=== PATIENT | female | born 1965 | race Caucasian/White ===

== ENCOUNTER → 2016-09-03 | Outpatient (CLI) | payer OTHER ==
[~2016-09-03] MED LIST: ALL180 PO; CLON0.5T3 PO; ESCI10TA17 PO; PANT40TA PO
[2016-09-03 15:42] LABS: BASO % 1.3 %; BASO ABS # 0.08 K/uL (0-0.2); COMPLETE YES; EOS % 1.3 %; HEMATOCRIT 38.3 % (37-47); LYMPH % 23.4 %; MEAN CELL VOLUME 83.8 fL (80-100); MEAN CORPUSCULAR HEMOGLOBIN 27.8 pg (25-34); MEAN CORPUSCULAR HGB CONC 33.2 g/dl (32-36); MEAN PLATELET VOLUME 9.6 fL (7.4-10.4); MONO % 8.9 %; NEUT % 65.1 %; PLATELET COUNT 389 K/uL (130-400); RED BLOOD COUNT 4.57 M/uL (4.2-5.4); WHITE BLOOD COUNT 5.98 K/uL (4.8-10.8)
[2016-09-03 16:27] LABS: PREG INTERNAL NEGATIVE QC NEG CLEAR BACKGROUND; PREG INTERNAL POSITIVE QC POS CONTROL LINE
== END | disposition home or self-care (01) ==
LOC: C.LAB 14:24
PROVIDERS: ATTEND Obstetrics & Gynecology
DX: N92.0 Excessive and frequent menstruation with regular cycle (principal)

== ENCOUNTER → 2016-09-03 | Outpatient (CLI) | payer OTHER | END | disposition home or self-care (01) | LOC: C.PATHSPEC 17:34 | PROVIDERS: ATTEND Obstetrics & Gynecology | DX: N92.0 Excessive and frequent menstruation with regular cycle (principal) ==

== ENCOUNTER → 2016-09-21 | Outpatient (CLI) | payer OTHER ==
--- NOTE | 2016-09-21 08:36 | DIAGNOSTIC IMAGING REPORT ---
PELVIC ULTRASOUND CLINICAL HISTORY: Menorrhagia. COMPARISON STUDY: Pelvic ultrasound January 07, 2012. TECHNIQUE: Transabdominal and transvaginal sonography of the pelvis was performed. FINDINGS: The uterus measures 9.3 x 5.4 x 4.7 cm. The endometrium measures 9 mm in thickness. Note is made of an apparent 1.3 x 1.1 x 1.1 cm hypoechoic lesion adjacent to the endometrium within the left aspect of the uterine fundus. This may reflect a submucosal fibroid. A few nabothian cysts are incidentally noted. The right ovary measures 3.1 x 2.4 x 1.9 cm and the left ovary measures 2.4 x 1.9 x 1.3 cm. Follicles within each ovary are noted. There is no free fluid. Color flow is identified within each ovary. IMPRESSION: 1. Apparent 1.3 cm hypoechoic lesion adjacent to the endometrium within the left aspect of the uterine fundus. While this could be artifactual, the appearance favors a submucosal fibroid. 2. Normal endometrial thickness of 9 mm. Electronically signed by: Elias Kat M.D. 09/21/2016 8:35 AM Dictated Date/Time: 09/21/2016 8:29 AM
== END | disposition home or self-care (01) ==
LOC: C.ULTR 06:51
PROVIDERS: ATTEND Obstetrics & Gynecology
DX: N92.0 Excessive and frequent menstruation with regular cycle (principal)

== ENCOUNTER → 2016-09-30 | Outpatient (CLI) | payer OTHER | END | disposition home or self-care (01) | LOC: C.LAB 07:27 | PROVIDERS: ATTEND Obstetrics & Gynecology | DX: N92.0 Excessive and frequent menstruation with regular cycle (principal) ==

== ENCOUNTER → 2016-12-03 | Outpatient (CLI) | payer OTHER ==
--- NOTE | 2016-12-04 13:21 | MAMMOGRAPHY REPORT ---
BILATERAL DIGITAL SCREENING MAMMOGRAM TOMOSYNTHESIS WITH CAD: 12/03/2016 CLINICAL HISTORY: Routine screening. Patient has no complaints. TECHNIQUE: Breast tomosynthesis in addition to standard 2D mammography was performed. Current study was also evaluated with a Computer Aided Detection (CAD) system. COMPARISON: Comparison is made to exams dated: 05/16/2015 mammogram, 04/04/2014 mammogram, 12/01/2012 ma mmogram, 11/23/2011 mammogram, 11/20/2010 mammogram - [facility], and 08/03/2008. BREAST COMPOSITION: There are scattered areas of fibroglandular density in both breasts. FINDINGS: No suspicious masses, calcifications, or areas of architectural distortion are noted in ei ther breast. There has been no significant interval change compared to prior exams. A linear scar ma rker denotes a scar on the right upper outer breast. IMPRESSION: ACR BI-RADS CATEGORY 2: BENIGN There is no mammographic evidence of malignancy. A 1 year screening mammogram is recommended. The pa tient will receive written notification of the results. Approximately 10% of breast cancers are not detected with mammography. A negative mammographic report should not delay biopsy if a clinically suggestive mass is present. Mirian Salguero M.D. /:12/03/2016 15:24:51 Analytics Intern: Sharri Sanchez M, [facility] letter sent: Normal 1/2 BI-RADS Code: ACR BI-RADS Category 2: Benign
== END | disposition home or self-care (01) ==
LOC: C.MAMM 14:51
PROVIDERS: ATTEND Obstetrics & Gynecology
DX: Z12.31 Encounter for screening mammogram for malignant neoplasm of breast (principal)

== ENCOUNTER → 2017-05-19 | Outpatient (CLI) | payer OTHER ==
[2017-05-19 06:57] LABS: HEMATOCRIT 39.3 % (37-47); HEMOGLOBIN 13.2 g/dL (12.0-16.0); MEAN CELL VOLUME 84.7 fL (80-100); MEAN CORPUSCULAR HEMOGLOBIN 28.4 pg (25-34); MEAN CORPUSCULAR HGB CONC 33.6 g/dl (32-36); MEAN PLATELET VOLUME 9.3 fL (7.4-10.4); PLATELET COUNT 376 K/uL (130-400); RED CELL DISTRIBUTION WIDTH SD 43.1 fL (36.4-46.3); WHITE BLOOD COUNT 5.84 K/uL (4.8-10.8)
[2017-05-19 07:31] LABS: ALBUMIN 3.4 gm/dl (3.4-5.0); ALT/SGPT 22 U/L (12-78); BLOOD UREA NITROGEN 12 mg/dl (7-18); CALCIUM 8.8 mg/dl (8.5-10.1); CARBON DIOXIDE 25 mmol/L (21-32); CHOLESTEROL 196 mg/dl (0-200); CREATININE 0.68 mg/dl (0.60-1.20); GLUCOSE 90 mg/dl (70-99); POTASSIUM 4.2 mmol/L (3.5-5.1); SODIUM 140 mmol/L (136-145)
[2017-05-19 07:34] LABS: ALKALINE PHOSPHATASE 57 U/L (45-117); AST/SGOT 13 U/L (15-37); LDL CHOLESTEROL CALCULATED 127 mg/dl; TOTAL PROTEIN 6.6 gm/dl (6.4-8.2)
== END | disposition home or self-care (01) ==
LOC: C.LAB 06:02
PROVIDERS: ATTEND Physician Assistant
DX: Z83.79 Family history of other diseases of the digestive system (principal); Z80.1 Family history of malignant neoplasm of trachea, bronchus and lung; Z13.6 Encounter for screening for cardiovascular disorders

== ENCOUNTER 2020-07-10 05:49 | Observation (INO) ==
--- NOTE | 2020-07-08 09:08 | Anesthesiology Consultation ---
Date of Service July 08, 2020 Assessment & Plan (1) Encounter for pre-operative examination: Chart Review Chart Review: Acceptable Risk for Surgery and Patient NOT seen in Pre Admission Testing Per nursing assessment 06/27/20, patient denies any recent travel. No known Covid positive contacts or Covid related symptoms. No known Covid infection in the past 90 days. Covid test 07/05/20= negative History Surgery Operation Date: 07/10/20 07:30 Proposed Procedures p Bilateral Reduction Mammoplasty - Janee Oreilly MD Height/Weight Height: 5 ft 3 in Weight: 63.503 kg Allergies Allergy/AdvReac Type Severity Reaction Status Date / Time bee venom protein (honey bee) Allergy Intermediate Hives AND Verified 06/27/20 08:28 CHEST TIGHTNESS latex Allergy Mild SKIN Verified 06/27/20 08:28 IRRITATION Medications Home Medications Medication Instructions Recorded Confirmed Last Taken epinephrine [EpiPen] 0.3 mg IM Q3H PRN 02/23/18 06/27/20 Unknown escitalopram oxalate [Lexapro] 10 mg PO QAM 02/23/18 06/27/20 03/03/18 acetaminophen 325 mg tablet 500 mg PO DAILY PRN tab 01/31/19 06/27/20 Unknown pseudoephedrine HCl 30 mg tablet 30 mg PO DAILY PRN tab 01/31/19 06/27/20 Unknown cholecalciferol (vitamin D3) 125 5,000 units PO QAM 03/22/19 06/27/20 Unknown mcg (5,000 unit) capsule hydrocodone 5 mg-acetaminophen 325 1 tab PO Q4H PRN #18 tab 06/24/20 06/27/20 Unknown mg tablet ondansetron HCl 4 mg tablet 4 mg PO Q6H PRN #30 tab 06/24/20 06/27/20 Unknown apple cider vinegar 900 mg PO QAM 06/27/20 06/27/20 Unknown krill oil 500 mg PO QAM 06/27/20 06/27/20 Unknown lactobacillus combination no.4 3,000 mmu cells PO QAM 06/27/20 06/27/20 Unknown [Probiotic] multivitamin 1 tab PO QAM 06/27/20 06/27/20 Unknown Past Medical History Medical History Depression Esophageal stricture HX WITH DILATION GERD (gastroesophageal reflux disease) History of eating disorder Pancolitis HX Restless leg syndrome Rotator cuff injury LEFT ARM- TORN Slow to wake up after anesthesia WAS GIVEN "CHILD SIZE DOSE OF ANESTHESIA" AND STILL HAD DIFFICULTY WAKING AFTER CHOLECYSTECTOMY Terminal ileitis HX Past Family History Family History Father Lung cancer Grandfather (Maternal) Diabetes Other Crohn's disease Past Surgical History Surgical History 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 H/O tubal ligation History of appendectomy History of breast biopsy LEFT- lipoma History of cataract surgery RT/LEFT History of cholecystectomy History of colonoscopy History of esophagogastroduodenoscopy (EGD) History of tooth extraction S/P section X1 S/P ear surgery EXPLORATORY SURGERY ON LEFT EAR Social History Smoking Status: Never smoker Do You Dip or Chew Tobacco: No Hx Alcohol Use: No Hx Substance Use: No substance use type: does not use Testing Laboratory Results Laboratory Tests 07/05/20 07/05/20 07/05/20 10:31 10:31 10:31 WBC 6.02 Hgb 13.1 Hct 37.7 Plt Count 374 PT 10.0 INR 1.0 APTT 26.3 Sodium 141 Potassium 4.3 Chloride 110 H Carbon Dioxide 28 BUN 15 Creatinine 0.78 Glucose 64 L Electrocardiogram Date: 07/05/20 Findings: + NSR @ (72bpm) Normal EKG.
[2020-07-10] MEDS ORDERED: ceFAZolin 2000MG 2,000 MG/15 ML SYR IV SCH (06:00)
[2020-07-10] MEDS ORDERED: LACTATED RINGER'S 1,000 ML IV SCH (06:00)
[2020-07-10] MEDS ORDERED: BUPIVACAINE LIPOSOME 1.3% 266 MG/20 ML VIAL ONE (06:10)
[2020-07-10] MEDS ORDERED: BUPIVACAINE 0.5 % 5 MG/1 ML PF 10ML VIAL ONE (06:19)
--- NOTE | 2020-07-10 07:02 | History & Physical Bridge Note ---
Date of Service July 10, 2020 History & Physical Bridge Note I have examined the patient, reviewed the History & Physical and in the interval since the performance of the History & Physical I have noted the following changes of clinical significance: no changes noted B cup if possible
[2020-07-10] MEDS ORDERED: PROPOFOL IV EMULSION 10 MG/ML 20 ML VIAL IV ONE (07:04)
[2020-07-10] MEDS ORDERED: ePHEDrine sulfate 50 MG/ML AMP ONE (07:04)
[2020-07-10] MEDS ORDERED: DEXAMETHASONE SOD INJ 4 MG/ML VIAL ONE ×2 (07:04→07:49)
[2020-07-10] MEDS ORDERED: ONDANSETRON INJ 2 MG/ML 2 ML VIAL ONE ×2 (07:04→07:49)
[2020-07-10] MEDS ORDERED: fentaNYL citrate 100 MCG/2 ML VIAL ONE (07:04)
[2020-07-10] MEDS ORDERED: LIDOCAINE HCL 2% 2 ML VIAL/AMP(20MG/ML) INFIL ONE (07:04)
[2020-07-10] MEDS ORDERED: MIDAZOLAM HCL 1 MG/ML 2ML VIAL ONE ×2 (07:04→07:06)
[2020-07-10] MEDS ORDERED: NEOSTIGMINE METHYLSULFATE 5 MG/5 ML SYR ONE (07:04)
[2020-07-10] MEDS ORDERED: PHENYLEPHRINE HCL 10 MG/ML VIAL ONE (07:04)
[2020-07-10] MEDS ORDERED: SUCCINYLCHOLINE CHLORIDE 20 MG/ML 10 ML VIAL IV ONE (07:04)
[2020-07-10] MEDS ORDERED: GLYCOPYRROLATE 0.2 MG/ML VIAL ONE (07:04)
[2020-07-10] MEDS ORDERED: LIDOCAINE/EPINEPHRINE 1% 20 ML VIAL ONE (07:06)
[2020-07-10] MEDS ORDERED: BUPIVACAINE 0.25% 30 ML VIAL ONE (07:06)
[2020-07-10] MEDS ORDERED: FAMOTIDINE/PF 20 MG/2 ML VIAL IV ONE (07:12)
[2020-07-10] MEDS ORDERED: SCOPOLAMINE 1 MG TDSY TD ONE (07:22)
[2020-07-10] MEDS ORDERED: METOCLOPRAMIDE HCL INJ 5 MG/ML 2 ML VIAL ONE (07:49)
[2020-07-10] MEDS ORDERED: fentaNYL citrate 100 MCG/2 ML VIAL IV PRN (08:01)
[2020-07-10] MEDS ORDERED: ATROPINE SULFATE 0.1 MG/ML 10ML SYR IV PRN (08:01)
[2020-07-10] MEDS ORDERED: PROMETHAZINE HCL 6.25 MG in SODIUM CHLORIDE 0.9% 50 ML IV PRN (08:01)
[2020-07-10] MEDS ORDERED: ePHEDrine sulfate 50 MG/ML AMP IV PRN (08:01)
[2020-07-10] MEDS ORDERED: ONDANSETRON INJ 2 MG/ML 2 ML VIAL IV PRN ×2 (08:01→11:51)
[2020-07-10] MEDS ORDERED: SODIUM CHLORIDE 0.9% INJ 10 ML VIAL ONE (08:45)
[2020-07-10] MEDS ORDERED: KETOROLAC 30 MG/ML VIAL ONE (10:21)
[2020-07-10] MEDS ORDERED: diphenhydrAMINE 50 MG/ML VIAL ONE (10:53)
--- NOTE | 2020-07-10 11:23 | Post Operative Brief Note ---
PG Immediate Post Op with CF Date of Surgery July 10, 2020 Pre & Post Diagnosis Operation Date: 07/10/20 07:30 Pre-Op Diagnosis: Symptomatic Bilateral Macromastia Post-Op Diagnosis: Symptomatic Bilateral Macromastia I identified the patient and participated in the time-out.: Yes Procedure Operation Date: 07/10/20 07:30 Actual Procedures p Bilateral Breast Reduction(Bilateral) - Janee Oreilly MD Surgeon Janee Oreilly MD Engraving Patternmaker Katiuska Cerrato PA-C Estimated Blood Loss 50 Findings Consistent with Post-Op Diagnosis Specimens Specimen Description: Fresh Specimen: A.) Left Breast Tissue out of body at 0902 weight = 404 grams Fresh Specimen: B.) Right Breast Tissue out of body at = 1030 weight = 224 grams Drains Evin-Le Drain (15 frisian round x2)
[2020-07-10] MEDS ORDERED: oxyCODONE/ACETAMINOPHEN 5mg/325mg TAB PO PRN (11:48)
[2020-07-10] MEDS ORDERED: LORazepam 0.5 MG TAB PO PRN (11:48)
[2020-07-10] MEDS ORDERED: ACETAMINOPHEN 325 MG TAB PO PRN (11:48)
[2020-07-10] MEDS ORDERED: diphenhydrAMINE Capsule 25 MG CAP PO PRN (11:48)
[2020-07-10] MEDS ORDERED: diphenhydrAMINE 50 MG/ML VIAL IV PRN (11:48)
--- NOTE | 2020-07-10 12:22 | Operative Report ---
PG Post Operative Report Pre & Post Diagnosis Operation Date: 07/10/20 07:30 Pre-Op Diagnosis: Symptomatic Bilateral Macromastia Post-Op Diagnosis: Symptomatic Bilateral Macromastia I identified the patient and participated in the time-out.: Yes Procedure Operation Date: 07/10/20 07:30 Actual Procedures p Bilateral Breast Reduction(Bilateral) - Janee Oreilly MD Surgeon Janee Oreilly MD Prestressed Concrete Laborer Katiuska Cerrato PA-C Estimated Blood Loss 50 Findings Consistent with Post-Op Diagnosis Specimens left breast 406 grams to pathology, right breast 224 grams to pathology Drains JPx2 Anesthesia Type General Regional Complications none Disposition Disposition: Recovery Room Indications bilateral back, neck and shoulder pain due to macromastia and breast asymmetry. Description of Procedure The risks, benefits, and alternatives of the procedure were explained to the patient who agreed and signed consent. She was identified and marked in the preoperative holding area. She was brought to the operating room where she was positioned supine and placed under general anesthesia without incident. Surgical site was prepped and draped sterilely. A time-out procedure was performed. I began with the left side. Markings were reassessed and a 6 cm pedicle was marked. 1% lidocaine with epinephrine was used to anesthetize the planned incisions. A 38 mm cookie cutter was used to circumscribe the nipple-areolar complex. The previously marked 6 cm pedicle was incised using a 15 blade scalpel and deepithelialized. I began with the medial dissection of the pedicle using electrocautery. Cautery was used to incise through dermis and breast parenchyma down to the chest wall, taking care not to undermine the pedicle during dissection. A similar procedure was undertaken on the lateral aspect of the pedicle again taking care not to undermine. Lastly, the pedicle was dissected out superiorly using electrocautery and this was carried down to the chest wall as well. I then began with excision of the medial breast tissue followed by lateral aspect of the breast tissue and surrounding keyhole incision. A 15 blade scalpel was used to make the inframammary fold incision and electrocautery was used to deepen the incision through dermis and breast parenchyma. Dissection was then carried superiorly to the level of the superior incision. Superior incision was then incised using a 15 blade scalpel and again dissected using electrocautery. This was undertaken laterally and then around the keyhole portion of the incision. Care was taken to leave some fat on the lateral pectoralis fascia in order to protect the T4 intercostal nerve. Hemostasis was achieved with electrocautery. The specimen was passed off in its entirety for weighing. Additional resection was undertaken from the superior flap in order to facilitate closure of the breast and to provide the best shape. The total resection weight of the left breast was 406 grams. The wound was irrigated with saline and hemostasis was achieved with electrocautery. A 15 Niuean Jeffrey drain was brought out through a separate stab incision. The nipple-areolar complex was brought into the keyhole using 2-0 Vicryl deep dermal suture. The wound was closed first in a lateral to mid breast direction and then medial to mid breast direction using 2-0 Vicryl deep dermal sutures. Vertical limb was also approximated using 2-0 Vicryl deep dermals and the nipple-areolar complex was inset using 2-0 Vicryl deep dermal sutures. Next, the superficial dermal layer was closed using 2-0 PDO running Quill suture along the inframammary fold and 3-0 PDS interrupted dermal sutures along the vertical limb and nipple- areolar complex. Lastly 3-0 Monocryl running subcuticular suture was placed. A similar procedure was undertaken on the right side until breasts were symmetric with maximal excision weight of 224 grams. Breasts were symmetric and nipple-areolar complexes were viable bilaterally following wound closure. Dermabond Prineo was applied along the inframammary fold and vertical limb and Dermabond was placed around the nipple-areolar complex. Dry dressings and a surgical bra were placed. The patient was awakened and transferred to recovery room in satisfactory condition. Katiuska Cerrato PA-C was present and scrubbed throughout the procedure and was instrumental in providing retraction during dissection of the pedicle and assisting in wound closure. I attest to the content of the Intraoperative Record and any orders documented therein. Any exceptions are noted below.
--- NOTE | 2020-07-10 12:23 | Anesthesiology Progress Note ---
Date of Service July 10, 2020 Anesthesia Post Procedure Vital Signs Vital Signs: Temp Pulse Pulse Resp BP Pulse Ox 07/10/20 12:15 68 16 122/70 97 07/10/20 12:05 73 15 121/74 99 07/10/20 11:55 77 15 125/69 97 07/10/20 11:49 36.2 C L 85 16 125/70 100 07/10/20 06:19 36.6 C 75 20 118/79 97 Pain Intensity Right Breast: Pain Intensity: 2 Transfer of Care Handoff Completed per policy Notes Mental Status: alert / awake / arousable Patient Amnestic to Procedure: Yes Nausea / Vomiting: adequately controlled Pain: adequately controlled Airway Patency, RR, SpO2: stable & adequate BP & HR: stable & adequate Hydration State: stable & adequate Anesthetic Complications: no major complications apparent Notes: blocks working well in pacu
[2020-07-10] MEDS ORDERED: PSEUDOEPHEDRINE HCL 30 MG TAB PO PRN (12:50)
[2020-07-10] MEDS ORDERED: EPINEPHrine INJ 1 MG/ML AMP IM PRN (12:58)
[2020-07-10] MEDS ORDERED: D5W AND 1/2NSS + 20MEQ KCL 20 MEQ/1,000 ML BAG IV SCH (13:00)
[2020-07-10] MEDS: oxyCODONE/ACETAMINOPHEN 5mg/325mg TAB PO PRN ×2 (13:01→20:59)
[2020-07-10] MEDS: ceFAZolin 2000MG 2,000 MG/15 ML SYR IV SCH ×2 (16:19→23:09)
[2020-07-10] MEDS ORDERED: MoRPHine SULFATE 2 MG/ML CARP IV PRN (17:58)
[2020-07-10] MEDS ORDERED: MoRPHine SULFATE 4 MG/ML 1 ML CARP\\VIAL IV PRN (17:58)
--- NOTE | 2020-07-10 18:11 | Surgery Progress Note ---
Date of Service July 10, 2020 Assessment & Plan (1) Macromastia: s/p Bilateral Breast Reduction. Nipples are pink and viable. Surgical dressings are clean and dry. Pt's pain is well-controlled. She denies nausea. Plan is to discharge patient to home in the AM. Admission and Anticipated Discharge Date Admission Date: July 10, 2020 Landon Fuller is resting in bed comfortably. She states that she did have 1 Percocet about 30 min prior to me coming to her room. She notes that her pain is well- controlled. She denies nausea. Physical Exam Physical Exam: On physical exam- surgical bra in place. I was able to remove bra to view surgical dressings, which were clean, dry. Bilateral nipples are pink and viable. There are no signs of hematoma formation. Surgical bra was reattached. Results & Data ([facility]) Vital Signs (Past 12 Hours) Vital Signs Temp Pulse Pulse Resp BP Pulse Ox 07/10/20 15:28 36.9 C 100 H 18 111/68 95 07/10/20 13:45 36.5 C 84 16 111/68 95 07/10/20 12:25 36.4 C L 66 15 122/71 98 07/10/20 12:15 68 16 122/70 97 07/10/20 12:05 73 15 121/74 99 07/10/20 11:55 77 15 125/69 97 07/10/20 11:49 36.2 C L 85 16 125/70 100 07/10/20 06:19 36.6 C 75 20 118/79 97 PG Care Time/CCT Total # of Minutes Spent Total Time Spent with Patient: Total time spent is greater than 50% in coordination of care (as documented) at patient's floor/unit and/or counseling patient: Coding Level of Care Code None Diagnoses Macromastia N62
--- NOTE | 2020-07-11 08:16 | Surgery Progress Note ---
Date of Service July 11, 2020 Assessment & Plan (1) Breast hypertrophy: Admission and Anticipated Discharge Date Admission Date: July 10, 2020 S/P bilateral breast reduction. Drains removed. Patient d/c home today, with office follow-up tomorrow. Supervising Physician Co-Signing Physician Notes I personally saw and examined this patient and agree with the assessment and pl an. Landon Fuller is resting comfortably in bed. She is tolerating a regular diet and ambulating. Her pain is well controlled, worse on the right than left, but overall comfortable. VSS. Physical Exam Constitutional: well developed and well nourished; no acute distress Skin: + incision (CDI, moderate ecchymosis,nipples viable, drains with approp serosang output) Results & Data ([facility]) Vital Signs (Past 12 Hours) Vital Signs Temp Pulse Pulse Resp BP Pulse Ox 07/11/20 07:41 36.8 C 84 16 114/68 94 07/11/20 02:27 37.5 C 85 16 105/68 94 07/10/20 23:20 102/62 07/10/20 23:03 37.2 C 79 18 95/65 L 95 PG Care Time/CCT Total # of Minutes Spent Total Time Spent with Patient: Total time spent is greater than 50% in coordination of care (as documented) at patient's floor/unit and/or counseling patient: Coding Level of Care Code None Diagnoses Breast hypertrophy N62
--- NOTE | 2020-07-11 08:22 | Anesthesiology Progress Note ---
Date of Service July 11, 2020 Anesthesia Post Procedure Vital Signs Vital Signs: Temp Pulse Pulse Resp BP Pulse Ox 07/11/20 07:41 36.8 C 84 16 114/68 94 07/11/20 02:27 37.5 C 85 16 105/68 94 07/10/20 23:20 102/62 07/10/20 23:03 37.2 C 79 18 95/65 L 95 07/10/20 19:11 37.1 C 78 18 106/64 95 07/10/20 15:28 36.9 C 100 H 18 111/68 95 07/10/20 13:45 36.5 C 84 16 111/68 95 07/10/20 12:25 36.4 C L 66 15 122/71 98 07/10/20 12:15 68 16 122/70 97 07/10/20 12:05 73 15 121/74 99 07/10/20 11:55 77 15 125/69 97 07/10/20 11:49 36.2 C L 85 16 125/70 100 Pain Intensity Right Breast: Pain Intensity: 2 Notes Mental Status: alert / awake / arousable Patient Amnestic to Procedure: Yes Nausea / Vomiting: adequately controlled Pain: adequately controlled Airway Patency, RR, SpO2: stable & adequate BP & HR: stable & adequate Hydration State: stable & adequate Anesthetic Complications: no major complications apparent and Pt Satisfied with anesthetic care
[2020-07-11] MEDS ORDERED: ESCITALOPRAM OXALATE 10 MG TAB PO SCH (09:00)
[2020-07-11] MEDS ORDERED: MULTIVITAMIN TAB PO SCH (09:00)
--- NOTE | 2020-07-11 11:57 | Discharge Summary ---
Date of Service July 11, 2020 Admission HPI Per Admitting Provider Please see admission H & P. Admission Exam Per Admitting Provider Please see admission H & P. Principal Diagnosis Breast Hypertrophy Discharge Data Allergies Allergy/AdvReac Type Severity Reaction Status Date / Time bee venom protein (honey bee) Allergy Intermediate Hives AND Verified 07/10/20 06:11 CHEST TIGHTNESS latex Allergy Mild SKIN Verified 07/10/20 06:11 IRRITATION Procedures Performed Operation Date: 07/10/20 07:30 Actual Procedures p Bilateral Breast Reduction(Bilateral) - Janee Oreilly MD Ordered Studies 07/10/20 05:00 US - OR guided needle placemen Routine Hospital Course (1) Breast hypertrophy: Jonny is a 54-year-old female with bilateral symptomatic macromastia. She was taken to the OR and underwent Bilateral Breast Reduction. There were no intraoperative complications. She was taken to recovery and transferred to med/surg for observation. On POD #1, she was feeling a bit sore, but overall was doing well. She was tolerating a regular diet, voiding on her own, and ambulating without issue. On exam, her vitals were stable. Her incisions were clean, dry, and intact. Her nipples were pink and viable. Her drains were removed without issue at bedside. She was discharged to home with instructions to follow-up in our office in 1 day. All questions answered. Total Time Total Time Spent Total Time Spent (In Minutes): 5 Discharge Plan Discharge Items Patient Disposition: Home - Self-Care Reason For Visit: Symptomatic Macromastia Discharge Diagnosis: s/p bilateral breast reduction Activity: As commented below Non-emergency contact: Surgeon Call non-emergency contact if: you have any medication questions, your pain is not controlled, you have a fever, your wound has increased redness and your wound has increased drainage Follow-up/Referrals: Sandi Hannah PA-C [Physician Bridge Game Director] - Latisha Rose PA-C [Primary Care Provider] - Diet: Regular Addtl Attending Provider Instructions: ACTIVITY RECOMMENDATIONS: __Normal activities _x_No bending, lifting or straining. Keep arms at shoulder height and below as much as possible. __No driving _x_Driving allowed when you are off pain medications _x_Walking permitted __You should have help at home for ___ days DRESSINGS: __No dressings required _x_Keep dressings dry/in place until first office visit __Remove dressings ___ and leave dressings off __Apply ice ___ days __Remove dressings and reapply garment __Apply antibiotic ointment (Bacitracin, Neosporin, etc) to wounds 3-4 times/day for 10 days BATHING: _x_Keep dressings dry _x_Sponge bathing permitted __Showering permitted _x_No swimming, hot tubs or soaking in a tub MEDICATIONS: Resume previous medications unless instructed otherwise by your surgeon. _x_Do not use aspirin, Motrin, Advil or Ibuprofen as these may promote bleeding. Please use Tylenol. _x_Prescription(s) provided: post-op pain medication was discussed at your pre- op visit OTHER INSTRUCTIONS: __Record drain output 2-3 times per day SPECIAL CARE INSTRUCTIONS: * It is normal to have a mild fever after surgery. If your temperature is higher than 101.5 degrees F, please call the office at [phone]. * Constipation is a typical side effect of pain medication. An jdai-tgr-hrbnkpv stool softener will help relieve this. * Leaking around surgical drains may occur and should not cause concern. Sometimes these drains become clogged. If this happens, remove the bulb and milk the clot out of the tube, then replace the bulb. * Drainage from wounds after liposuction is normal and should be expected. Garments will become soiled. You should protect furniture and bedding. This drainage should mostly subside within 2-3 days. Leave garments in place unless instructed to remove them. * If you have unusual drainage from a wound or are concerned you have an infection or have any questions or concerns, please call the office at [phone]. FOLLOW UP VISIT: If not already scheduled, please call the office, , when you return home after surgery to schedule an appointment to be seen in _1__ days. Discharge Instructions after your anesthesia with a nerve block: During your procedure you were given medicine for anesthesia to keep you relaxed or sleeping and free of pain. After your procedure you may have some sleepiness, dizziness, or nausea. This is common. Here are some tips for fee ling better and getting well after your anesthesia: Anesthesia and safety for 24 hours after anesthesia: Have an adult drive you home. Have someone stay with you for at least 24 hrs. They can watch for problems and help keep you safe. You may experience some dizziness or sleepiness for 24 hrs. Move slowly when changing positions or climbing stairs. Have someone help you when getting up or climbing stairs. For the first 24 hours after your anesthesia: Do not drive or use heavy equipment. Do not use household or hazardous devices that may cause injury. Do not make important decisions, sign legal papers or work on any business matters. Do not drink alcohol. Instructions for nerve block of surgical area This anesthesia can last for 36-72 hours or longer depending on the medicine used. This is only an estimate of how long your block can last. Your block may wear off earlier or last longer. What to expect AFTER a nerve block Nerve blocks affect many types of nerves, including nerves that control movement, pain, and normal sensation. These blocks can cause feelings such as: * Numbness * Tingling * Heaviness * Weakness or inability to move your arm or leg * A feeling that your arm or leg has fallen asleep Weakness usually wears off first. The tingling and heaviness usually wear off next. Finally, you may start to notice pain. These may happen in any order. Once a block starts to wear off, its effects are usually completely gone within 60 minutes. Diet and managing nausea for 24 hours after anesthesia: Some people have an upset stomach after anesthesia for 24 hours. If an upset stomach lasts more than 24 hours, please call your surgeon at [phone]. These tips may help with upset stomach after anesthesia: Do not push yourself to eat or drink for 2 4 hours after discharge. If you vomit, do not eat or drink for 2 hours, then start with clear liquids again. * Start with clear liquids and soup. These foods are easier to digest. * Next, try semi-solid foods such as mashed potatoes, applesauce. * Slowly move to solid foods. Do not eat fatty, rich or spicy foods at first. * Do not force yourself to have 3 large meals a day. Instead eat smaller amounts more often. * If you have been prescribed pain medication or if you are going to take ygbi-rwl-hliezms pain medication (i.e. Tylenol), please take with a small amount of solid food, such as crackers or toast, to avoid an upset stomach. Pain medication after an anesthesia nerve block: If needed, your surgeon will give you a prescription for pain medication or you will be instructed to take pkfo-mzb-unmmdlz pain medication (i.e. Tylenol). Start taking this medicine before the block first begins to wear off or when you first begin to feel discomfort. The idea is to have pain medicine in your body before the block wears off. It takes about 30 minutes for the oral (by mouth) pain medicine to become fully effective. If your pain is not controlled, call your surgeon at [phone]. Keep in mind that blocks often wear off in the middle of the night. If you are going to bed and the block has not started to wear off or you have not had any discomfort, consider setting an alarm to go off in 2-3 hours so you can see how your feel. If you notice the block is wearing off or you are starting to have discomfort, you can take your medicine. Always take your pain medication as instructed. Pain medicine can cause sleepiness and slow your breathing if you take more than you need for the level of pain that you are having. Nausea is a common side effect of many pain medicines. You may want to eat something before taking your pain medicine. IV Site Care Some patients, especially those who bruise easily, may get a discolored area on the arm or hand where the IV medicine was given. This may last for several days or weeks afterwards. If you have redness, swelling, tenderness or pain on your IV site where you were given medicine, put a covered ice pack or a heating pad over it for 5 minutes and then remove it. This can be done in the morning, noon, afternoon, and evening for 24 hours. If you still have redness, swelling, tenderness or pain after the above treatment, then call your surgeon at [phone]. Per hospital policy, providers are not able to respond to email. As a result, if you have any questions or concerns, please call the office of Dr. Janee Oreilly at [phone]. Pending Studies at Discharge: Yes Studies:: pathology Stand-Alone Forms: My [facility] [place] [employer] [place], Opioid Pain Management, Smoking Cessation Medications and DC Order Prescriptions: Continued ondansetron HCl [Zofran] 4 mg tablet 4 mg PO Q6H PRN (Reason: nausea and vomiting) Qty: 30 RF: 0 hydrocodone-acetaminophen 5-325 mg tablet 1 tab PO Q4H PRN (Reason: pain) Qty: 18 RF: 0 pseudoephedrine HCl 30 mg tablet 30 mg PO DAILY PRN (Reason: Allergy Symptoms) RF: 0 acetaminophen 325 mg tablet 500 mg PO DAILY PRN (Reason: Pain) RF: 0 Probiotic 3 billion cell Capsule 3,000 mmu cells PO QAM RF: 0 escitalopram oxalate [Lexapro] 10 mg Tablet 10 mg PO QAM RF: 0 epinephrine [EpiPen] 0.3 mg/0.3 mL Auto-Injector 0.3 mg IM Q3H PRN (Reason: Allergy Symptoms) RF: 0 Discontinued cholecalciferol (vitamin D3) 5,000 unit capsule 5,000 units PO QAM RF: 0 multivitamin Tablet 1 tab PO QAM RF: 0 apple cider vinegar 500 mg Tablet 900 mg PO QAM RF: 0 krill oil 500 mg Capsule 500 mg PO QAM RF: 0 Discharge Orders: Discharge Order (Routine); Ordered 07/11/20 Ordered By: Katiuska Pendleton/Other Patient Handouts: Preventing Deep Vein Thrombosis Admission Data Admit Date/Time: 07/10/20 11:48 Attending Provider: Janee Oreilly Admit Provider: Janee Oreilly Primary Care Provider: Latisha Rose Other Interventions: Discharge Summary Assessment (RN) Last Done: 07/11/20 09:43 Coding Level of Care Code 45706 OBS Care - Discharge Diagnoses Breast hypertrophy N62
== END 2020-07-11 10:29 | disposition home or self-care (01) ==
LOC: ASU 05:49 → 3N 05:49

== ENCOUNTER 2020-09-02 05:48 | Observation (INO) ==
--- NOTE | 2020-08-16 08:59 | Anesthesiology Consultation ---
Date of Service August 16, 2020 Assessment & Plan (1) Encounter for pre-operative examination: - COVID screening: Per assessment on 08/15: Travel screen negative, no known COVID-19 positive contacts or current COVID-19 related symptoms. Surgeon arranging preop COVID testing (scheduled 08/27). Awaiting results. - S/P b/l breast reduction (07/10/20): Grade view 3, MAC#3, ETT 7.0 at [facility] > no anesthetic complications per post-op anesthesia progress note Chart Review Chart Review: Acceptable Risk for Surgery and Patient NOT seen in Pre Admission Testing History Surgery Operation Date: 09/02/20 07:30 Proposed Procedures p Bilateral Breast Mastectomy with [place] Lymph Node Biopsy - Yves Robertson MD, FACS s Bilateral Immediate Reconstruction with Tissue Expanders and Acellular Matrix - Janee Oreilly MD Height/Weight Height: 5 ft 3 in Weight: 63.503 kg Allergies Allergy/AdvReac Type Severity Reaction Status Date / Time bee venom protein (honey bee) Allergy Intermediate Hives, Verified 08/16/20 08:53 chest tightness bacitracin Allergy Mild Rash Verified 08/15/20 13:47 [From Neosporin ([id number])] latex Allergy Mild Skin Verified 08/16/20 08:53 irritation neomycin Allergy Mild Rash Verified 08/15/20 13:47 [From Neosporin ([id number])] polymyxin B Allergy Mild Rash Verified 08/15/20 13:47 [From Neosporin ([id number])] Medications Home Medications Medication Instructions Recorded Confirmed Last Taken epinephrine [EpiPen] 0.3 mg IM Q3H PRN 02/23/18 08/15/20 Unknown escitalopram oxalate [Lexapro] 10 mg PO QAM 02/23/18 08/15/20 07/10/20 05:00 acetaminophen 325 mg tablet 500 mg PO DAILY PRN tab 01/31/19 08/15/20 07/09/20 08:00 pseudoephedrine HCl 30 mg tablet 30 mg PO DAILY PRN tab 01/31/19 08/15/20 07/08/20 09:00 Probiotic 3,000 mmu cells PO QAM 06/27/20 08/15/20 07/09/20 05:00 cephalexin 500 mg capsule 500 mg PO TID 14 Days #42 cap 08/01/20 08/01/20 Unknown Past Medical History Medical History Cancer BCC (left shoulder) s/p excision 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 Depression Esophageal stricture s/p dilation GERD (gastroesophageal reflux disease) History of eating disorder Leiomyoma Menorrhagia Pancolitis hx Restless leg syndrome Terminal ileitis hx Past Family History Family History Father Lung cancer Small cell lung, in six weeks Grandfather (Maternal) Diabetes Grandmother (Maternal) Lung cancer Uncle Prostate cancer Grandmother (Paternal) Breast cancer Other Crohn's disease Ovarian cancer Past Surgical History Surgical History H/O bilateral breast reduction surgery b/l breast reduction (07/10/20): Grade view 3, MAC#3, ETT 7.0 at [facility] H/O tubal ligation History of appendectomy History of breast biopsy Left (lipoma) History of cataract surgery R/L History of colonoscopy History of esophagogastroduodenoscopy (EGD) History of tooth extraction S/P section x1 S/P ear surgery Left ear exploratory surgery S/P laparoscopic cholecystectomy Slow to wake up after anesthesia "Slow to wake" after cholecystectomy (per pt, was told still slow to wake with "child sized dose" of anesthesia), no anesthesia complications noted per more recent b/l breast reduction done at [facility] 07/2020 Social History Smoking Status: Never smoker Hx Alcohol Use: No Hx Substance Use: No substance use type: does not use Lab Results Anesthesia Preop Results Results Anesthesia Widget: WBC 6.02 K/uL (4.8-10.8) 07/05/20 Hgb 13.1 g/dL (12.0-16.0) 07/05/20 Hct 37.7 % (37-47) 07/05/20 Plt 374 K/uL (130-400) 07/05/20 Na 141 mmol/L (136-145) 07/05/20 K 4.3 mmol/L (3.5-5.1) 07/05/20 Cl 110 mmol/L (98-107) H 07/05/20 CO2 28 mmol/L (21-32) 07/05/20 BUN 15 mg/dl (7-18) 07/05/20 Creat 0.78 mg/dl (0.6-1.2) 07/05/20 Glucose Level 64 mg/dl (70-99) L 07/05/20 PT 10.0 Seconds (9.0-12.0) 07/05/20 PTT 26.3 Seconds (21.0-31.0) 07/05/20 INR 1.0 (0.9-1.1) 07/05/20 Testing Electrocardiogram Date: 07/05/20 Findings: + NSR @ (72)
[2020-09-02] MEDS ORDERED: ceFAZolin 2000MG 2,000 MG/15 ML SYR IV SCH (06:00)
[2020-09-02] MEDS ORDERED: LR 15ML/HR IV SCH (06:00)
[2020-09-02] MEDS ORDERED: LR 500ML BOLUS IV SCH (06:00)
[2020-09-02] MEDS ORDERED: SCOPOLAMINE 1 MG TDSY TD ONE (06:57)
[2020-09-02] MEDS ORDERED: FAMOTIDINE/PF 20 MG/2 ML VIAL IV ONE (06:57)
[2020-09-02] MEDS ORDERED: ACETAMINOPHEN 1000 MG/100 ML IV IV ONE (06:58)
[2020-09-02] MEDS ORDERED: SUCCINYLCHOLINE CHLORIDE 20 MG/ML 10 ML VIAL IV ONE (07:01)
[2020-09-02] MEDS ORDERED: ePHEDrine sulfate 50 MG/ML AMP ONE ×2 (07:01→14:22)
[2020-09-02] MEDS ORDERED: PROPOFOL IV EMULSION 10 MG/ML 20 ML VIAL IV ONE (07:01)
[2020-09-02] MEDS ORDERED: DEXAMETHASONE SOD INJ 4 MG/ML VIAL ONE ×2 (07:01→07:05)
[2020-09-02] MEDS ORDERED: GLYCOPYRROLATE 0.2 MG/ML VIAL ONE (07:01)
[2020-09-02] MEDS ORDERED: MIDAZOLAM HCL 1 MG/ML 2ML VIAL ONE (07:01)
[2020-09-02] MEDS ORDERED: LIDOCAINE HCL 2% 2 ML VIAL/AMP(20MG/ML) INFIL ONE (07:01)
[2020-09-02] MEDS ORDERED: NEOSTIGMINE METHYLSULFATE 5 MG/5 ML SYR ONE (07:01)
[2020-09-02] MEDS ORDERED: PHENYLEPHRINE HCL 10 MG/ML VIAL ONE (07:01)
[2020-09-02] MEDS ORDERED: ONDANSETRON INJ 2 MG/ML 2 ML VIAL ONE ×2 (07:01→07:06)
[2020-09-02] MEDS ORDERED: fentaNYL citrate 100 MCG/2 ML VIAL ONE (07:02)
[2020-09-02] MEDS ORDERED: ROCURONIUM BROMIDE 10 MG/ML 5 ML VIAL IV ONE ×5 (07:04→11:06)
[2020-09-02] MEDS ORDERED: METOCLOPRAMIDE HCL INJ 5 MG/ML 2 ML VIAL ONE ×2 (07:05→13:01)
[2020-09-02] MEDS ORDERED: diphenhydrAMINE 50 MG/ML VIAL ONE (07:05)
[2020-09-02] MEDS ORDERED: KETOROLAC 30 MG/ML VIAL ONE (07:07)
[2020-09-02] MEDS ORDERED: HYDROmorphone INJ 1 MG/ML SYRINGE ONE ×2 (07:20→10:34)
--- NOTE | 2020-09-02 07:37 | History & Physical Report ---
Date of Service September 02, 2020 Assessment & Plan (1) DCIS (ductal carcinoma in situ): 2 months s/p bilateral reduction mammoplasty, presenting for bilateral mastectomy, bilateral first stage reconstruction with tissue steam hand and acellular dermal matrix. Consent obtained at office consultation last month. Questions addressed. Planning to use reduction scars, did discuss possibility of horizontal incision based on skin excess/ability to close wound and viability. History of Present Illness Jonny presents today for bilateral mastectomy, left SLN bx, bilateral first stage immediate breast reconstruction. She is s/p bilateral reduction mammoplasty, offers no complaints. This is to serve as updated H+P. Primary Care Provider: Latisha Rose PA-C Allergies Allergy/AdvReac Type Severity Reaction Status Date / Time bee venom protein (honey bee) Allergy Intermediate Hives, Verified 09/02/20 06:40 chest tightness bacitracin Allergy Mild Rash Verified 09/02/20 06:40 [From Neosporin (fpt-ehj-lifsi)] latex Allergy Mild Skin Verified 09/02/20 06:40 irritation neomycin Allergy Mild Rash Verified 09/02/20 06:40 [From Neosporin (kak-nwj-[id number])] polymyxin B Allergy Mild Rash Verified 09/02/20 06:40 [From Neosporin (jre-awa-fngza)] Home Medications Medication Instructions Recorded Confirmed Type epinephrine [EpiPen] 0.3 mg IM Q3H PRN 02/23/18 08/15/20 History escitalopram oxalate [Lexapro] 10 mg PO QAM 02/23/18 09/02/20 History acetaminophen 325 mg tablet 500 mg PO DAILY PRN tab 01/31/19 09/02/20 History pseudoephedrine HCl 30 mg tablet 30 mg PO DAILY PRN tab 01/31/19 09/02/20 History Probiotic 3,000 mmu cells PO QAM 06/27/20 09/02/20 History cephalexin 500 mg capsule 500 mg PO TID 14 Days #42 cap 08/01/20 09/02/20 Rx Past Med/Surg History Medical History Cancer BCC (left shoulder) s/p excision 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 Depression Esophageal stricture s/p dilation GERD (gastroesophageal reflux disease) History of eating disorder Leiomyoma Menorrhagia Pancolitis hx Restless leg syndrome Terminal ileitis hx Surgical History H/O bilateral breast reduction surgery b/l breast reduction (07/10/20): Grade view 3, MAC#3, ETT 7.0 at [facility] H/O tubal ligation History of appendectomy History of breast biopsy Left (lipoma) History of cataract surgery R/L History of colonoscopy History of esophagogastroduodenoscopy (EGD) History of tooth extraction S/P section x1 S/P ear surgery Left ear exploratory surgery S/P laparoscopic cholecystectomy Slow to wake up after anesthesia "Slow to wake" after cholecystectomy (per pt, was told still slow to wake with "child sized dose" of anesthesia), no anesthesia complications noted per more recent b/l breast reduction done at [facility] 07/2020 Family History Father Lung cancer Small cell lung, in six weeks Grandfather (Maternal) Diabetes Grandmother (Maternal) Lung cancer Uncle Prostate cancer Grandmother (Paternal) Breast cancer Other Crohn's disease Ovarian cancer Social History (Updated 07/25/20 @ 12:16 by Keyonna Bo RN) Smoking Status: Never smoker Second Hand Exposure: No; Hx Alcohol Use: No Hx Substance Use: No Preferred Language: Japanese Communication Ability: Effective Getter Welder Required: No Beliefs That Will Affect Care: None marital status: Current Living Situation: Spouse current occupational status: employed current occupation: RN Feels Safe at Home: Yes Safety Concerns: Feels Safe At This Time Assistive Devices: Contacts Review of Systems Review of Systems: All systems reviewed & are unremarkable except as noted in HPI & below Physical Exam Constitutional: WD/WN, vitals as above Respiratory: normal respiratory effort, lungs clear to auscultation Cardiovascular: RRR, no murmur, no edema Chest (Breasts): Additional Comments: Appropriately healing incisions bilateral breasts, viable nipple areolar complexes. Minimal edema, no erythema or signs of infection. Skin: no rashes, warm and dry Psychiatric: A+Ox3, euthymic affect Results & Data Results & Data ([facility]) Vital Signs (Past 12 Hours) Vital Signs Temp Pulse Resp BP Pulse Ox 09/02/20 06:43 97.7 F 73 18 117/78 96 (1) DCIS (ductal carcinoma in situ) Laterality: left Qualified Code(s): D05.12 - Intraductal carcinoma in situ of left breast
[2020-09-02] MEDS ORDERED: BUPIVACAINE LIPOSOME 1.3% 266 MG/20 ML VIAL ONE (07:54)
[2020-09-02] MEDS ORDERED: BUPIVACAINE 0.5 % 5 MG/1 ML PF 10ML VIAL ONE (07:58)
[2020-09-02] MEDS ORDERED: ePHEDrine sulfate 50 MG/ML AMP IV PRN (08:08)
[2020-09-02] MEDS ORDERED: PROMETHAZINE HCL 6.25 MG in SODIUM CHLORIDE 0.9% 50 ML IV PRN (08:08)
[2020-09-02] MEDS ORDERED: ATROPINE SULFATE 0.1 MG/ML 10ML SYR IV PRN (08:08)
[2020-09-02] MEDS ORDERED: ONDANSETRON INJ 2 MG/ML 2 ML VIAL IV PRN ×2 (08:08→15:28)
[2020-09-02] MEDS ORDERED: fentaNYL citrate 100 MCG/2 ML VIAL IV PRN (08:08)
[2020-09-02] MEDS ORDERED: HYDROmorphone INJ 2 MG/ML SYR/VIAL IV PRN (08:08)
[2020-09-02] MEDS ORDERED: GENTAMICIN SULFATE 40 MG/ML 2 ML VIAL ONE (08:46)
[2020-09-02] MEDS ORDERED: LIDOCAINE/EPINEPHRINE 1% 20 ML VIAL ONE ×2 (08:47→10:32)
[2020-09-02] MEDS ORDERED: BUPIVACAINE 0.25% 30 ML VIAL ONE (08:47)
--- NOTE | 2020-09-02 08:51 | Nuclear Medicine Report ---
LEFT BREAST LYMPHOSCINTIGRAPHY CLINICAL HISTORY: Breast cancer. COMPARISON STUDY: Mammogram February 13, 2020. PROCEDURE: The procedure, risks and benefits were discussed with the patient and informed consent was obtained. The procedure was performed by Dr. Kat following a timeout. Skin of the left periare olar region was prepped and draped in typical fashion. A total of 0.498 mCi of Lymphoseek was injecte d in 5 intradermal aliquots at 8:05 AM on September 02, 2020 within a left periareolar distribution. The pat ient tolerated the procedure well and no immediate complications were evident. No imaging was request ed at this time IMPRESSION: Left breast lymphoscintigraphy, as described above. ACT 112: Negative or not required by law. Electronically signed by: Elias Kat M.D. 09/02/2020 8:49 AM
--- NOTE | 2020-09-02 08:52 | Nuclear Medicine Report ---
RIGHT BREAST LYMPHOSCINTIGRAPHY CLINICAL HISTORY: Breast cancer. COMPARISON STUDY: Mammogram February 13, 2020. PROCEDURE: Right breast lymphoscintigraphy was performed. The procedure, risks and benefits were disc ussed with the patient and informed consent was obtained. The procedure was performed by Dr. Sulema meng following a timeout. Skin of the right breast was prepped and draped into fashion and a total of 0. 49 mCi of Lymphoseek was injected in 5 intradermal aliquots at 8:10 AM on September 02, 2020 within a right periareolar distribution. The patient tolerated the procedure well and no immediate complications wer e evident. No imaging was requested at this time. IMPRESSION: Right breast lymphoscintigraphy, as described above. ACT 112: Negative or not required by law. Electronically signed by: Elias Kat M.D. 09/02/2020 8:51 AM
--- NOTE | 2020-09-02 11:28 | Post Operative Brief Note ---
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 Post-Op Diagnosis: Ductal Carcinoma in Situ of Left Breast I identified the patient and participated in the time-out.: Yes Procedure Operation Date: 09/02/20 08:45 Actual Procedures p Bilateral Breast Mastectomy with Jones Lymph Node Biopsy , Injection Only(Bilateral) - Yves Robertson MD, FACS s Bilateral Immediate Reconstruction with Tissue Expanders and Acellular Matrix(Bilateral) - Janee Oreilly MD Surgeon Yves Robertsno MD, FACS Gill Box Fixer Rosa Maria Edward Estimated Blood Loss 15 Findings Consistent with Post-Op Diagnosis Specimens Specimen Description: Frozen Section #1--Jones Lymph Node #1 (Right Breast)--sent to pathology at 1000 Fresh Specimen A: Right Breast Tissue - long silk lateral - sent to pathology at 1028 Frozen Specimen #2: Left Jones Node - 1047 Fresh Specimen b: Left Breast Tissue - long silk lateral - sent to pathology at Drains Johnson Catheter (16 serbian 10ml balloon LATEX free; inserted at 0915 by Soledad Del Castillo RN without difficulty; anesthesia staff monitor urine output throughout entire case) and Evin-Le Drain (x2)
--- NOTE | 2020-09-02 12:28 | Operative Report (OR) ---
DATE OF OPERATION: 09/02/2020 NAME OF OPERATION: Bilateral mastectomy with bilateral sentinel node biopsy. PREOPERATIVE DIAGNOSIS: Ductal carcinoma in situ, left breast. POSTOPERATIVE DIAGNOSIS: Ductal carcinoma in situ, left breast. STAFF SURGEON: Yves Robertson MD. EDUCATIONAL PSYCHOLOGIST: Oc Edward PA-C. ANESTHESIA: General. DESCRIPTION OF PROCEDURE: The patient was brought in the operating room and placed on the operating table in supine position. Her upper chest, breasts and axilla were prepped and draped bilaterally. The patient had an injection for sentinel lymph node biopsy. She also had regional blocks by anesthesia. The right side was approached first. [place] lymph node biopsy was performed using the Neoprobe with an incision in the right axilla. I did use 0.5% plain Marcaine to anesthetize all incisions. The lymph node was sent for frozen section and found to be negative. That incision was closed using 2-0 plain for the deep tissue and 4-0 Monocryl for the skin. The right breast was approached. The patient did have a prior recent breast reduction. A CIrcumareolar incision was made around the nipple, then carried down in the central part of the breast to the inferior breast and then across medial and lateral through prior scar tissue, which was the incision made by Dr. Oreilly for the breast reduction. The subcutaneous tissue and breast tissue were dissected away from the subcutaneous tissue and also encountering significant scar tissue from her reduction. Dissection was carried down to the pectoralis major muscle and the breast tissue taken away from the pectoralis major incorporating the fascia. Site was irrigated and then moist dressing applied. The left side was then approached. Metaline node was performed in the exact same fashion. This frozen section was also negative, closure of the wound was the same. Left mastectomy was performed again in the same exact fashion through previous scar tissue, dissecting the fascia away from the pectoralis major muscle. The breast tissue on both sides were marked with a silk suture lateral. At this point, Dr. Oreilly took over for the breast reconstruction. My title assistant helped with prepping, draping, mastectomy, and sentinel node biopsies. I attest to the content of the Intraoperative Record and any orders documented therein. Any exception s are noted below.
[2020-09-02] MEDS ORDERED: SODIUM CHLORIDE 0.9% INJ 10 ML VIAL ONE (14:22)
--- NOTE | 2020-09-02 15:12 | Post Operative Brief Note ---
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 Post-Op Diagnosis: Ductal Carcinoma in Situ of Left Breast I identified the patient and participated in the time-out.: Yes Procedure Operation Date: 09/02/20 08:45 Actual Procedures p Bilateral Breast Mastectomy with [place] Lymph Node Biopsy Injection Only(Bilateral) - Yves Robertson MD, FACS s Bilateral Immediate Reconstruction with Tissue Expanders and Acellular Matrix(Bilateral) - Janee Oreilly MD Surgeon Janee Oreilly MD Staff Research Scientist Rosa Maria Edward Estimated Blood Loss 15 Findings Consistent with Post-Op Diagnosis Specimens Specimen Description: Frozen Section #1--[place] Lymph Node #1 (Right Breast)--sent to pathology at 1000 Fresh Specimen A: Right Breast Tissue - long silk lateral - sent to pathology at 1028 Frozen Specimen #2: Left [place] Node - 1047 Fresh Specimen b: Left Breast Tissue - long silk lateral - sent to pathology at Drains Johnson Catheter (16 polish 10ml balloon LATEX free; inserted at 0915 by Soledad Del Castillo RN without difficulty; anesthesia staff monitor urine output throughout entire case) and Evin-Le Drain (x2)
[2020-09-02] MEDS ORDERED: MoRPHine SULFATE 4 MG/ML 1 ML CARP\\VIAL IV PRN (15:22)
[2020-09-02] MEDS ORDERED: ACETAMINOPHEN 500 MG TAB PO PRN (15:22)
[2020-09-02] MEDS ORDERED: oxyCODONE/ACETAMINOPHEN 5mg/325mg TAB PO PRN (15:22)
[2020-09-02] MEDS ORDERED: MoRPHine SULFATE 2 MG/ML CARP IV PRN (15:22)
[2020-09-02] MEDS ORDERED: PROMETHAZINE HCL 12.5 MG in SODIUM CHLORIDE 0.9% 50 ML IV PRN (15:28)
--- NOTE | 2020-09-02 16:02 | Operative Report ---
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 Post-Op Diagnosis: Ductal Carcinoma in Situ of Left Breast I identified the patient and participated in the time-out.: Yes Procedure Operation Date: 09/02/20 08:45 Actual Procedures p Bilateral Breast Mastectomy with [place] Lymph Node Biopsy Injection Only(Bilateral) - Yves Robertson MD, FACS s Bilateral Breast Immediate Reconstruction with Tissue Expanders and Acellular Matrix(Bilateral) - Janee Oreilly MD Surgeon Janee Oreilly MD Malt House Operator Katiuska Cerrato PA-C Estimated Blood Loss 15 Findings Consistent with Post-Op Diagnosis Specimens additional left breast tissue Drains TONY x2 Anesthesia Type General Regional Complications none Disposition Disposition: Recovery Room Indications s/p bilateral breast reduction, DCIS identified in left breast specimen; patient desired bilateral mastectomy with immediate reconstruction Description of Procedure At the completion of the mastectomies, which were performed using the breast reduction incisions, field was reprepped and draped. A time out procedure was performed. I began with the left side. Hemostasis was achieved with electrocautery. Pectoralis major muscle was then identified and elevated. Inferior attachments of pectoralis major muscle were divided along the ribs medially to the sternum. None of the sternal attachments were dissected. The retropectoral plane was then developed using electrocautery. Hemostasis was achieved using cautery. Once adequate dissection had been performed, I then chose a piece of medium contour thick AlloDerm which was then used to create a sling for the lower pole. This was first sutured to the inframammary fold using 2-0 Vicryl U stitches and then to rib periosteum to recreate the inframammary fold. Pocket was then measured and base diameter was 11 cm. Therefore, I selected a Allergan style 133S MVT tissue manager corporate strategy with base diameter of 11 cm, fill volume 300 cc. The manager corporate strategy was prepared and air was aspirated out. The manager corporate strategy was soaked in antibiotic irrigation and antibiotic irrigation was used to irrigate the pocket. All instruments were wiped down and gloves were changed. Brusher Tender was placed along the inframammary fold as medially as possible. Suture tabs were sutured down to underlying periosteum using a 2-0 Vicryl suture. The remainder of the manager corporate strategy was then enclosed using 2-0 Vicryl running suture to reapproximate the AlloDerm which had been trimmed to size and this was approximated to the pectoralis major muscle. Laterally, this was closed down using 2-0 Vicryl interrupted sutures as well. A 15-Kosovan Jeffrey drain was placed in the wound and brought out through a separate stab incision. Prior to reapproximating the wound the fill port was identified using the magna-finder and accessed using a Fourte needle. A total of 50 mL were placed prior to closure. Wound edges were debrided with a straight iris scissor until healthy bleeding was encountered. Wound was reapproximated using 2-0 Vicryl deep dermal suture, 3-0 PDS superficial dermal suture and 3-0 Monocryl running subcuticular suture. Drain was sutured in place using 3-0 nylon. Dermabond was applied to the superior portion of the vertical incision. An identical procedure was performed on the right side. The drain site was dressed using Acticoat dry dressing and Tegaderm. Provena wound vacs were placed over the incisions. Procedure was tolerated well. Katiuska Cerrato PA-C was present and scrubbed throughout the entire procedure and was instrumental in providing exposure during elevation of pectoralis muscle and suturing of the AlloDerm as well as filling expanders and assisting in wound closure. I attest to the content of the Intraoperative Record and any orders documented therein. Any exceptions are noted below.
--- NOTE | 2020-09-02 16:22 | Anesthesiology Progress Note ---
Date of Service September 02, 2020 Anesthesia Post Procedure Vital Signs Vital Signs: Temp Pulse Pulse Resp BP Pulse Ox 09/02/20 16:05 86 22 119/73 95 09/02/20 15:55 88 22 125/61 100 09/02/20 15:45 94 H 19 128/75 100 09/02/20 15:35 36.4 C L 98 H 20 122/71 99 09/02/20 06:43 36.5 C 73 18 117/78 96 Pain Intensity Right Wrist: Pain Intensity: 3 Transfer of Care Handoff Completed per policy Notes Mental Status: alert / awake / arousable Patient Amnestic to Procedure: Yes Nausea / Vomiting: adequately controlled Pain: adequately controlled Airway Patency, RR, SpO2: stable & adequate BP & HR: stable & adequate Hydration State: stable & adequate Anesthetic Complications: no major complications apparent
[2020-09-02] MEDS ORDERED: PSEUDOEPHEDRINE HCL 30 MG TAB PO PRN (17:24)
[2020-09-02] MEDS: D5W AND 1/2NSS + 20MEQ KCL 20 MEQ/1,000 ML BAG IV SCH (18:36)
[2020-09-02] MEDS ORDERED: HYDROmorphone INJ 0.5 MG/0.5 ML SYR IV STA (21:27)
[2020-09-02] MEDS ORDERED: diphenhydrAMINE 50 MG/ML VIAL IV PRN (21:33)
[2020-09-02] MEDS ORDERED: LORazepam 0.5 MG TAB PO PRN (21:33)
[2020-09-02] MEDS ORDERED: diphenhydrAMINE Capsule 25 MG CAP PO PRN (21:33)
--- NOTE | 2020-09-02 22:01 | Surgery Progress Note ---
Date of Service September 02, 2020 Assessment & Plan (1) DCIS (ductal carcinoma in situ): (2) Encounter for breast reconstruction following mastectomy: Patient is several hours s/p Bilateral Breast Mastectomy with [place] Lymph Node Biopsy with Dr. Robertson and Bilateral Breast Immediate Reconstruction with Tissue Expanders and Acellular Matrix with Dr. Oreilly. Preveena wound vacs restarted and Alert light off when I left patient's room. TONY drains x2 in placed. No clots in tubing or in bulbs. Vital signs stable. No signs of active bleeding. Jonny is stating that she is having pain. 0.5 mg Dilaudid ordered for her. We briefly discussed possible discharge tomorrow. She is aware that Sandi will be in to see her in the AM. Bilateral wound vacs to remain in place until she returns to office on POD #2. All questions answered. Admission and Anticipated Discharge Date Admission Date: September 02, 2020 Subjective Jonny is resting in bed. She states that she is having pain. Preveena wound vac x [address] with Alert messages on. Received a call from nursing stating that the Alert light keeps coming on, even after reinforcing with additional tegaderm and after turning off and on. Physical Exam Physical Exam: On physical exam- vital signs stable. both wound vacs are on and i am not able to detect a leak from either. I reinforced vacs bilaterally, turned both machines off, detached canisters and then inserted back in and heard a click, and then restarted the machines. Both wound vacs were fully functioning and Alert was off. Preevena hotline stated that it is ok for wound vac to remain in place if Alert light is on, but leak is not detected and sucti on is holding. Bilateral TONY drains in place with bloody drainage. No signs of clots in bulb or tubing. No signs of active bleeding. Results & Data ([facility]) Vital Signs (Past 12 Hours) Vital Signs Temp Pulse Pulse Resp BP Pulse Ox 09/02/20 20:19 36.6 C 79 16 102/62 94 09/02/20 19:12 36.4 C L 86 16 104/64 97 09/02/20 18:06 36.7 C 77 18 112/61 93 09/02/20 17:35 36.7 C 89 16 118/63 91 09/02/20 17:05 36.7 C 81 16 125/64 91 09/02/20 16:50 83 18 110/65 92 09/02/20 16:35 36.9 C 83 21 119/58 L 92 09/02/20 16:25 83 15 124/65 96 09/02/20 16:15 92 H 16 119/69 95 09/02/20 16:05 86 22 119/73 95 09/02/20 15:55 88 22 125/61 100 09/02/20 15:45 94 H 19 128/75 100 09/02/20 15:35 36.4 C L 98 H 20 122/71 99 PG Care Time/CCT Total # of Minutes Spent Total Time Spent with Patient: Total time spent is greater than 50% in coordination of care (as documented) at patient's floor/unit and/or counseling patient: Coding Level of Care Code None Diagnoses DCIS (ductal carcinoma in situ) D05.12 Laterality: left Encounter for breast reconstruction following mastectomy Z42.1 (1) DCIS (ductal carcinoma in situ) Laterality: left Qualified Code(s): D05.12 - Intraductal carcinoma in situ of left breast
[2020-09-02] MEDS: ceFAZolin 2000MG 2,000 MG/15 ML SYR IV SCH (22:03)
[2020-09-03] MEDS: HYDROmorphone INJ 0.5 MG/0.5 ML SYR IV PRN ×2 (01:19→08:51)
[2020-09-03] MEDS: ceFAZolin 2000MG 2,000 MG/15 ML SYR IV SCH ×3 (05:04→20:44)
[2020-09-03] MEDS: D5W AND 1/2NSS + 20MEQ KCL 20 MEQ/1,000 ML BAG IV SCH ×2 (07:30→20:44)
--- NOTE | 2020-09-03 07:32 | Surgery Progress Note ---
Date of Service September 03, 2020 Assessment & Plan (1) H/O bilateral mastectomy: awake, alert vitals stable some pain- B/L chest dressings in place stable but does not feel she is ready for d/c home pain control, mobility, wound care Admission and Anticipated Discharge Date Admission Date: September 02, 2020 Results & Data ([facility]) Vital Signs (Past 12 Hours) Vital Signs Temp Pulse Resp BP Pulse Ox 09/03/20 02:53 36.8 C 94 H 16 97/60 L 94 09/02/20 21:56 36.8 C 75 16 103/65 95 09/02/20 20:19 36.6 C 79 16 102/62 94 PG Care Time/CCT Total # of Minutes Spent Total Time Spent with Patient: Total time spent is greater than 50% in coordination of care (as documented) at patient's floor/unit and/or counseling patient: Coding Level of Care Code None Diagnoses H/O bilateral mastectomy Z90.13
[2020-09-03] MEDS: ESCITALOPRAM OXALATE 10 MG TAB PO SCH (09:48)
--- NOTE | 2020-09-03 10:05 | Surgery Progress Note ---
Date of Service September 03, 2020 Assessment & Plan (1) Encounter for breast reconstruction following mastectomy: Admission and Anticipated Discharge Date Admission Date: Non-functioning wound vacs removed and new vacs placed. They are now functioning and holding good suction along the incision. Fresh Acticoat 7/tegaderm dressing placed around TONY drains. We discussed probable discharge later this afternoon if pain is controlled on 1-2 tabs of Endocet. If she feels she cannot get good pain control on Endocet, she may stay another night and anticipate discharge in AM. Landon Fuller is resting in bed. She is tolerated a regular diet. She reports pain that is difficult to control, the Dilaudid has kept her comfortable. Prevena wound vac alarms have stayed on overnight and patient reports there has not been suction with the vac. She inquires about staying another night in the hospital. Physical Exam Physical Exam: bilateral TONY drains with 20cc of serosang output. Prevena wound vac x2 in place without suction. attempt to reinforce around drain site failed. these were removed. bilateral breast flaps appear viable. there is ecchymosis as expected. incisions are CDI. No concern for active bleeding or necrosis. new prevena wound vacs placed with the assistance of Naomy Rader and were holding suction. Results & Data ([facility]) Vital Signs (Past 12 Hours) Vital Signs Temp Pulse Resp BP Pulse Ox 09/03/20 07:44 37.1 C 69 16 109/72 96 09/03/20 02:53 36.8 C 94 H 16 97/60 L 94 PG Care Time/CCT Total # of Minutes Spent Total Time Spent with Patient: Total time spent is greater than 50% in coordination of care (as documented) at patient's floor/unit and/or counseling patient: Coding Level of Care Code None Diagnoses Encounter for breast reconstruction following mastectomy Z42.1
[2020-09-03] MEDS: oxyCODONE/ACETAMINOPHEN 5mg/325mg TAB PO PRN ×3 (12:27→20:56)
--- NOTE | 2020-09-03 14:06 | Surgery Progress Note ---
Date of Service September 03, 2020 Assessment & Plan (1) Encounter for breast reconstruction following mastectomy: Recommend that patient stay for additional night so that we can achieve better pain control. Will continue IV antibiotic while patient remains in hospital. Wound vacs to remain in place at discharge. Plan is to discharge patient in the morning. Admission and Anticipated Discharge Date Admission Date: September 02, 2020 Supervising Physician Co-Signing Physician Notes I personally saw this patient and agree with assessment and plan. VACs functioning. Working toward pain control. Subjective Jonny is POD #1 s/p s/p Bilateral Breast Mastectomy with [place] Lymph Node Biopsy with Dr. Robertson and Bilateral Breast Immediate Reconstruction with Tissue Expanders and Acellular Matrix with Dr. Oreilly. She was seen this morning by Sandi who was able to replace her non-functioning wound vacs with Naomy Rader at bedside. Jonny reports that she is still having pain that she feels is not being controlled with Percocet. Results & Data ([facility]) Vital Signs (Past 12 Hours) Vital Signs Temp Pulse Resp BP Pulse Ox 09/03/20 11:11 37.1 C 66 16 114/73 96 09/03/20 07:44 37.1 C 69 16 109/72 96 09/03/20 02:53 36.8 C 94 H 16 97/60 L 94 PG Care Time/CCT Total # of Minutes Spent Total Time Spent with Patient: Total time spent is greater than 50% in coordination of care (as documented) at patient's floor/unit and/or counseling patient: Coding Level of Care Code None Diagnoses Encounter for breast reconstruction following mastectomy Z42.1
[2020-09-03] MEDS: MULTIVITAMIN TAB PO SCH (14:36)
[2020-09-04] MEDS: oxyCODONE/ACETAMINOPHEN 5mg/325mg TAB PO PRN ×3 (01:11→09:53)
[2020-09-04] MEDS: ceFAZolin 2000MG 2,000 MG/15 ML SYR IV SCH (05:42)
[2020-09-04] MEDS: ESCITALOPRAM OXALATE 10 MG TAB PO SCH (08:35)
[2020-09-04] MEDS: MULTIVITAMIN TAB PO SCH (08:35)
--- NOTE | 2020-09-04 09:00 | Surgery Progress Note ---
Date of Service September 04, 2020 Assessment & Plan (1) Encounter for breast reconstruction following mastectomy: Jonny's pain is better controlled this morning. Wound vac x [address] and functioning. NO alarm on. Vacs to remain at discharge. She is ok for discharge to home today. We discussed that she is not to shower. She will continue to monitor and record her drain output amounts. Pain prescription sent to patient's pharmacy yesterday. Script for post-op antibiotic sent to patient's pharmacy after consultation visit with Dr. Oreilly. She was able to pickup antibiotic prior to surgery. She will return to our office on Wednesday for follow-up. She was encouraged to call with any questions or concerns. Admission and Anticipated Discharge Date Admission Date: September 03, 2020 Subjective Jonny is POD #2. She is s/p Bilateral Breast Mastectomy with [place] Lymph Node Biopsy with Dr. Robertson and Bilateral Breast Immediate Reconstruction with Tissue Expanders and Acellular Matrix with Dr. Oreilly. Se reports that she is doing well and reports an improvement in her pain. She feels that the Percocet is keeping her pain controlled and she feels that she is ok for discharge to home today. She has been tolerating a regular diet and voiding without issue. Physical Exam Physical Exam: bilateral TONY drains with serosang output. Prevena wound vac x2 in place and functioning. No alarm lights are on. Bilateral axillary incisions are CDI. No concern for active bleeding. Results & Data ([facility]) Vital Signs (Past 12 Hours) Vital Signs Temp Pulse Resp BP Pulse Ox 09/04/20 08:16 36.8 C 59 L 16 125/72 94 09/03/20 21:41 36.7 C 65 14 106/68 94 PG Care Time/CCT Total # of Minutes Spent Total Time Spent with Patient: Total time spent is greater than 50% in coordination of care (as documented) at patient's floor/unit and/or counseling patient: Coding Level of Care Code None Diagnoses Encounter for breast reconstruction following mastectomy Z42.1
--- NOTE | 2020-09-04 13:30 | Discharge Summary ---
Date of Service September 04, 2020 Admission HPI Per Admitting Provider Please see admission H & P. Admission Exam Per Admitting Provider Please see admission H & P. Principal Diagnosis Ductal Carcinoma in Situ of Left Breast Discharge Data Allergies Allergy/AdvReac Type Severity Reaction Status Date / Time bee venom protein (honey bee) Allergy Intermediate Hives, Verified 09/02/20 06:40 chest tightness bacitracin Allergy Mild Rash Verified 09/02/20 06:40 [From Neosporin ([id number])] latex Allergy Mild Skin Verified 09/02/20 06:40 irritation neomycin Allergy Mild Rash Verified 09/02/20 06:40 [From Neosporin ([id number])] polymyxin B Allergy Mild Rash Verified 09/02/20 06:40 [From Neosporin ([id number])] Procedures Performed Operation Date: 09/02/20 08:45 Actual Procedures p Bilateral Breast Mastectomy with [place] Lymph Node Biopsy Injection Only(Bilateral) - Yves Robertson MD, FACS s Bilateral Breast Immediate Reconstruction with Tissue Expanders and Acellular Matrix(Bilateral) - Janee Oreilly MD Ordered Studies 09/02/20 08:49 US - OR guided needle placemen Routine Hospital Course (1) DCIS (ductal carcinoma in situ): (2) Encounter for breast reconstruction following mastectomy: Jonny is a 54-year-old female, status post Bilateral Breast Reduction with DCIS identified in left breast specimen, who desired bilateral mastectomy with immediate reconstruction. She was taken to the OR and underwent Bilateral Breast Mastectomy with [place] Lymph Node Biopsy with Dr. Robertson followed by Bilateral Breast Immediate Reconstruction with Tissue Expanders and Acellular Matrix with Dr. Oreilly. 2 TONY drains were placed intra-operatively. A Preveena wound vac was placed over each incision. There were no intraoperative complications. She was taken to recovery and transferred to Med/Surg for observation. On the evening of surgery, the Alert button for both Preveena wound vacs was on. No leak was identified. An attempt was made to seal the vac, but was unsuccessful. Preveena rep was contacted and was unable to help reset Alerts. We were instructed to keep vac on for no more than 2 days if Alarm is on. On the morning of POD #1, Jonny was very painful and PRN Dilaudid was ordered. New Preveena wound vacs were applied, were functioning and no Alert lights were on. Jonny was kept an additional day due to uncontrolled pain. On POD #2, Jonny's pain was controlled much better. Wound vacs were functioning well. TONY drains in place in serosang drainage. She was discharged to home with instructions to continue to monitor and record drain output amounts. She was instructed not to shower. She will start her PO post-op antibiotic when she returns home. She will return to our office in 2 days for follow-up. She was encouraged to call our office with any questions or concerns. Total Time Total Time Spent Total Time Spent (In Minutes): 15 Discharge Plan Discharge Items Patient Disposition: Home - Self-Care Reason For Visit: Intraductal Carcinoma in Situ of Breast Discharge Diagnosis: s/p bilateral mastectomy with breast reconstruction Condition on Discharge: Good Activity: As commented below Non-emergency contact: Surgeon Call non-emergency contact if: you have any medication questions, your pain is not controlled, your pain is unusual for you, you have a fever, your wound has increased redness and your wound has increased drainage Follow-up/Referrals: Janee Oreilly MD [Physician] - 09/05/20 10:30 am Latisha Rose PA-C [Primary Care Provider] - Diet: Regular Addtl Attending Provider Instructions: ACTIVITY RECOMMENDATIONS: __Normal activities _x_No bending, lifting or straining. Keep arms at shoulder height. __No driving __Driving allowed when you are off pain medications _x_Walking permitted __You should have help at home for ___ days DRESSINGS: __No dressings required _x_Keep dressings dry/in place until first office visit. Call if wound vac stops functioning again. __Remove dressings ___ and leave dressings off __Apply ice ___ days __Remove dressings and reapply garment __Apply antibiotic ointment (Bacitracin, Neosporin, etc) to wounds 3-4 times/day for 10 days BATHING: _x_Keep dressings dry _x_Sponge bathing permitted away from your breasts. __Showering permitted _x_No swimming, hot tubs or soaking in a tub. No showers while your drains are in place. MEDICATIONS: Resume previous medications unless instructed otherwise by your surgeon. _x_Do not use aspirin, Motrin, Advil or Ibuprofen as these may promote bleeding. Please use Tylenol. _x_Prescription(s) provided: Endocet was sent to [facility]- you may take 2 tabs every 4 hours if needed. Begin antibiotics as soon as you are discharged home OTHER INSTRUCTIONS: _x_Record drain output 2-3 times per day. Drains are ready to be removed when they are at 10cc/24 hours x 2 days. SPECIAL CARE INSTRUCTIONS: * It is normal to have a mild fever after surgery. If your temperature is higher than 101.5 degrees F, please call the office at [phone]. * Constipation is a typical side effect of pain medication. An [id number] stool softener will help relieve this. * Leaking around surgical drains may occur and should not cause concern. Sometimes these drains become clogged. If this happens, remove the bulb and milk the clot out of the tube, then replace the bulb. * Drainage from wounds after liposuction is normal and should be expected. Garments will become soiled. You should protect furniture and bedding. This drainage should mostly subside within 2-3 days. Leave garments in place unless instructed to remove them. * If you have unusual drainage from a wound or are concerned you have an infection or have any questions or concerns, please call the office at [phone]. FOLLOW UP VISIT: If not already scheduled, please call the office, , when you return home after surgery to schedule an appointment to be seen in _2__ days. You don't have an appointment time scheduled- call when you are discharged or tomorrow morning to pick a time that works for you! Pending Studies at Discharge: Yes Studies:: pathology Stand-Alone Forms: My [facility] Perceptive Pixel, Opioid Pain Management, Smoking Cessation Medications and DC Order Prescriptions: Continued oxycodone-acetaminophen [Endocet] 5-325 mg tablet 1 tab PO Q4H PRN (Reason: pain) Qty: 18 RF: 0 cephalexin 500 mg capsule 500 mg PO TID 14 Days Qty: 42 RF: 2 pseudoephedrine HCl 30 mg tablet 30 mg PO DAILY PRN (Reason: Allergy Symptoms) RF: 0 acetaminophen 325 mg tablet 500 mg PO DAILY PRN (Reason: Pain) RF: 0 Probiotic 3 billion cell Capsule 3,000 mmu cells PO QAM RF: 0 escitalopram oxalate [Lexapro] 10 mg Tablet 10 mg PO QAM RF: 0 epinephrine [EpiPen] 0.3 mg/0.3 mL Auto-Injector 0.3 mg IM Q3H PRN (Reason: Allergy Symptoms) RF: 0 Discharge Orders: Discharge Order (Routine); Ordered 09/04/20 Ordered By: Katiuska Pendleton/Other Patient Handouts: Preventing Deep Vein Thrombosis Admission Data Admit Date/Time: 09/03/20 13:24 Attending Provider: Janee Oreilly Admit Provider: Janee Oreilly Primary Care Provider: Latisha Rose Other Interventions: Discharge Summary Assessment (RN) Last Done: 09/04/20 09:04 Coding Level of Care Code 57833 OBS Care - Discharge Diagnoses DCIS (ductal carcinoma in situ) D05.12 Laterality: left Encounter for breast reconstruction following mastectomy Z42.1
== END 2020-09-04 10:03 | disposition home or self-care (01) ==
LOC: ASU 05:48 → 3E 05:48

== ENCOUNTER 2020-10-05 22:00 | Inpatient (IN) ==
[2020-10-06] MEDS ORDERED: PIPERACILLIN/TAZOBACTAM 4.5 GM/120 ML BAG IV ONE (00:12)
[2020-10-06] MEDS ORDERED: VANCOMYCIN HCL 1,250 MG in SODIUM CHLORIDE 0.9% 500 ML IV ONE (00:12)
[2020-10-06] MEDS ORDERED: VANCOMYCIN CONSULT ACTIVE PRN (00:12)
[2020-10-06] MEDS ORDERED: PIPERACILL/TAZOBAC CONSULT ACTIVE PRN (00:12)
[2020-10-06] MEDS ORDERED: SODIUM CHLORIDE 0.9% 1000ML 1,000 ML IV ONE (00:13)
--- NOTE | 2020-10-06 00:22 | Surgery Consultation ---
Date of Consultation October 06, 2020 Assessment & Plan (1) S/P mastectomy, bilateral: (2) DCIS (ductal carcinoma in situ): (3) Breast infection: Right breast is cellulitic. Suspect device infection. Given timing, unlikely to be SSI; most likely source is from bacteremia from dental cleaning, but also possible skin source from accessing the [employer] clerk for fill 3 weeks ago should be considered. Case was discussed with Dr. Hess, treatment protocol for tissue star[employer] clerk infection typically is 24 to 48 hours of intravenous antibiotics, if erythema responds, could consider transition to p.o. antibiotics. If antibiotics fail, device may need to be removed. This was discussed with the patient. We also discussed that in this case, star[employer] clerk would be removed and left out for about 6 months, and then we could address with delayed reconstruction. Dr. Hess will start Vanco/Zosyn after obtaining CBC and blood cultures and will discuss case with hospitalist. Will follow. History of Present Illness History of Present Illness Dianna a 54-year-old female status post bilateral reduction mammoplasty performed July, with unfortunate incidental finding of ductal carcinoma in situ of the left breast, who is now status post bilateral mastectomy WithBilateral sentinel lymph node biopsy with tissue expanders and acellular dermal matrix. 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 States she had been feeling well until Wednesday, October 05, began to notice increasing pain, took Percocet for the first time since surgery, developed chills and fatigue as well as vertigo. Tonight, when getting out of the shower, she noticed her right breast was red and swollen. She contacted me via the answ ering service, however, she had no remaining postoperative antibiotics at home and pharmacies were closed, so she was advised to present to the emergency department for evaluation. She has not experienced any wound problems following surgery, has had no concerns for postoperative infection until 2 days ago. Denies any respiratory or urinary symptoms, did have dental cleaning performed 10 days ago. Afebrile with stable vital signs at time of presentation to the emergency department. Allergies Allergy/AdvReac Type Severity Reaction Status Date / Time bee venom protein (honey bee) Allergy Intermediate Hives, Verified 09/18/20 14:54 chest tightness bacitracin Allergy Mild Rash Verified 09/18/20 14:54 [From Neosporin ([id number])] latex Allergy Mild Skin Verified 09/18/20 14:54 irritation neomycin Allergy Mild Rash Verified 09/18/20 14:54 [From Neosporin ([id number])] polymyxin B Allergy Mild Rash Verified 09/18/20 14:54 [From Neosporin ([id number])] Home Medications Medication Instructions Recorded Confirmed Type epinephrine [EpiPen] 0.3 mg IM Q3H PRN 02/23/18 09/18/20 History escitalopram oxalate [Lexapro] 10 mg PO QAM 02/23/18 09/18/20 History acetaminophen 325 mg tablet 500 mg PO DAILY PRN tab 01/31/19 09/18/20 History pseudoephedrine HCl 30 mg tablet 30 mg PO DAILY PRN tab 01/31/19 09/18/20 History Probiotic 3,000 mmu cells PO QAM 06/27/20 09/18/20 History cephalexin 500 mg capsule 500 mg PO TID 14 Days #42 cap 08/01/20 09/18/20 Rx Patient History Medical History (Updated 10/06/20 @ 00:26 by Janee Oreilly MD) Cancer 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 Breast, left (breast reduction): - Ductal carcinoma in situ (DCIS), intermediate grade, is seen. Depression Esophageal stricture s/p dilation GERD (gastroesophageal reflux disease) History of eating disorder Leiomyoma Menorrhagia Pancolitis hx Restless leg syndrome Terminal ileitis hx Surgical History (Updated 10/06/20 @ 00:25 by Janee Oreilly MD) H/O bilateral breast reduction surgery b/l breast reduction (07/10/20): Grade view 3, MAC#3, ETT 7.0 at [facility] H/O tubal ligation History of appendectomy History of breast biopsy Left (lipoma) History of cataract surgery R/L History of colonoscopy History of esophagogastroduodenoscopy (EGD) History of tooth extraction S/P section x1 S/P ear surgery Left ear exploratory surgery S/P laparoscopic cholecystectomy S/P mastectomy, bilateral (09/02/20) Bilateral Breast Mastectomy with [place] Lymph Node Biopsy Injection Only(Bilateral) - Yves Robertson MD, FACS s Bilateral Breast Immediate Reconstruction with Tissue Expanders and Acellular Matrix(Bilateral) - Janee Oreilly MD Slow to wake up after anesthesia "Slow to wake" after cholecystectomy (per pt, was told still slow to wake with "child sized dose" of anesthesia), no anesthesia complications noted per more recent b/l breast reduction done at [facility] 07/2020 Family History Father Lung cancer Small cell lung, in six weeks Grandfather (Maternal) Diabetes Grandmother (Maternal) Lung cancer Uncle Prostate cancer Grandmother (Paternal) Breast cancer Other Crohn's disease Ovarian cancer Social History (Updated 07/25/20 @ 12:16 by Keyonna Bo, RACQUEL) Smoking Status: Never smoker Second Hand Exposure: No; Hx Alcohol Use: No Hx Substance Use: No Preferred Language: Persian Communication Ability: Effective Rescue Boat Operator Required: No Beliefs That Will Affect Care: None marital status: Current Living Situation: Spouse current occupational status: employed current occupation: RN Feels Safe at Home: Yes Assistive Devices: None Physical Exam Physical Exam: Left breast incisions well-healed, no signs of infection. Right breast incisions well-healed, entire breast mound is erythematous and edematous, warm and tender to palpation. Blood cultures and white blood cell count pending at the present time. Results & Data ([facility]) Vital Signs (Past 12 Hours) Vital Signs Temp Pulse Pulse Resp BP BP Pulse Ox 10/05/20 23:20 79 18 108/69 98 10/05/20 22:04 98.6 F 88 18 121/80 98 PG Care Time/CCT Total # of Minutes Spent Total Time Spent with Patient: Total time spent is greater than 50% in coordination of care (as documented) at patient's floor/unit and/or counseling patient: Coding Level of Care Code None Diagnoses S/P mastectomy, bilateral Z90.13 DCIS (ductal carcinoma in situ) D05.12 Laterality: left Breast infection N61.0 (1) DCIS (ductal carcinoma in situ) Laterality: left Qualified Code(s): D05.12 - Intraductal carcinoma in situ of left breast
[2020-10-06 00:28] LABS: Basophils # (auto) 0.04 K/uL (0-0.2); Basophils % (auto) 0.3 %; Eosinophils # (auto) 0.26 K/uL (0-0.5); Eosinophils % (auto) 2.1 %; Hematocrit (blood only) 34.4 % (37-47); Hemoglobin 11.8 g/dL (12.0-16.0); Immature Granulocytes # (auto) 0.02 K/uL (0.00-0.02); Immature Granulocytes % (auto) 0.2 %; Lymphocytes % (auto) 10.4 %; Mean Corpuscular Hemoglobin 29.6 pg (25-34); Mean Corpuscular Hgb Conc 34.3 g/dL (32-36); Mean Corpuscular Volume 86.4 fL (80-100); Mean Platelet Volume 9.7 fL (7.4-10.4); Monocytes % (auto) 9.6 %; Neutrophils # (auto) 9.67 K/uL (1.4-6.5); Neutrophils % (auto) 77.4 %; Platelet Count 296 K/uL (130-400); RDW Standard Deviation 44.2 fL (36.4-46.3); Red Blood Count 3.98 M/uL (4.2-5.4); White Blood Count 12.49 K/uL (4.8-10.8)
[2020-10-06 00:36] LABS: Albumin Level 3.4 gm/dl (3.4-5.0); BUN Creatinine Ratio 29.3 (10-20); Calcium 8.8 mg/dl (8.5-10.1); Est GFR (Non-African American) 93.1 ml/min; Potassium 3.4 mmol/L (3.5-5.1)
[2020-10-06 00:39] LABS: Albumin Globulin Ratio 1.1 (0.9-2); Bilirubin,Total 0.6 mg/dl (0.2-1); Globulin 3.2 gm/dl (2.5-4.0); Total Protein 6.6 gm/dl (6.4-8.2)
[2020-10-06] MEDS ORDERED: POTASSIUM CHLORIDE CRTAB 20 MEQ TABCR PO STA (00:48)
--- NOTE | 2020-10-06 01:16 | History & Physical Report ---
Date of Service October 06, 2020 Assessment & Plan (1) Cellulitis of right breast: 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) No overt sepsis for now. Recent dental procedure Hypokalemia secondary to poor p.o. intake mood disorder, at baseline GMF CS, Daptomycin, Zosyn Plastic surgery follow-up eval (Patient already evaluated at the ER by Dr. Oreilly.) Replace potassium DVT prophylaxis. Lovenox subcu Full code Text document was generated using [email or web address] voice recognition software. It may contain grammatical or spelling errors. Kindly contact undersigned for clarification of any documentation item in question. History of Present Illness Chief Complaint: Right breast swelling Primary Care Provider: Dr. Jose Daniel Mills History obtained from patient and records. 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 Incidental DCIS of left breast found after elective bilateral reduction mammoplasty last July 2020. Patient elected to have bilateral breast mastectomy followed by reconstruction last month. Uneventful postop course. Dental cleaning procedure about 10 days ago. 2 days ago, patient noted right breast pain followed by swelling with fever, fatigue, chills. No cough, no S OB. No abdominal pain, no diarrhea. Appetite not too good. Patient directed by her plastic surgeon to ER for evaluation. Patient received IV Vancomycin and Zosyn at the ER. 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 Allergies Allergy/AdvReac Type Severity Reaction Status Date / Time bee venom protein (honey bee) Allergy Intermediate Hives, Verified 10/06/20 02:03 chest tightness bacitracin Allergy Mild Rash Verified 10/06/20 02:03 [From Neosporin ([id number])] latex Allergy Mild Skin Verified 10/06/20 02:03 irritation neomycin Allergy Mild Rash Verified 10/06/20 02:03 [From Neosporin ([id number])] polymyxin B Allergy Mild Rash Verified 10/06/20 02:03 [From Neosporin ([id number])] Home Medications Medication Instructions Recorded Confirmed Type epinephrine [EpiPen] 0.3 mg IM Q3H PRN 02/23/18 10/06/20 History escitalopram oxalate [Lexapro] 10 mg PO QAM 02/23/18 10/06/20 History Probiotic 6,000 mmu cells PO QAM 06/27/20 10/06/20 History acetaminophen [Tylenol Extra 1,000 mg PO TID PRN 10/06/20 10/06/20 History Strength] apple cider vinegar 0 mg PO DAILY 10/06/20 10/06/20 History cholecalciferol (vitamin D3) 125 mcg PO DAILY 10/06/20 10/06/20 History [Vitamin D3] clonazepam 0.5 mg PO DAILY PRN 10/06/20 10/06/20 History krill oil 500 mg PO DAILY 10/06/20 10/06/20 History multivitamin 1 tab PO DAILY 10/06/20 10/06/20 History oxycodone-acetaminophen 1 tab PO Q4 PRN 10/06/20 10/06/20 History Past Med/Surg History Medical History (Updated 10/06/20 @ 02:47 by Jeffery Gilbert MD) Cancer 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 Breast, left (breast reduction): - Ductal carcinoma in situ (DCIS), intermediate grade, is seen. Depression Esophageal stricture s/p dilation GERD (gastroesophageal reflux disease) History of eating disorder Leiomyoma Menorrhagia Pancolitis hx Restless leg syndrome Terminal ileitis hx Surgical History (Updated 10/06/20 @ 00:25 by Janee Oreilly MD) H/O bilateral breast reduction surgery b/l breast reduction (07/10/20): Grade view 3, MAC#3, ETT 7.0 at [facility] H/O tubal ligation History of appendectomy History of breast biopsy Left (lipoma) History of cataract surgery R/L History of colonoscopy History of esophagogastroduodenoscopy (EGD) History of tooth extraction S/P section x1 S/P ear surgery Left ear exploratory surgery S/P laparoscopic cholecystectomy S/P mastectomy, bilateral (09/02/20) Bilateral Breast Mastectomy with [place] Lymph Node Biopsy Injection Only(Bilateral) - Yves Robertson MD, FACS s Bilateral Breast Immediate Reconstruction with Tissue Expanders and Acellular Matrix(Bilateral) - Janee Oreilly MD Slow to wake up after anesthesia "Slow to wake" after cholecystectomy (per pt, was told still slow to wake with "child sized dose" of anesthesia), no anesthesia complications noted per more recent b/l breast reduction done at [facility] 07/2020 Family History Father Lung cancer Small cell lung, in six weeks Grandfather (Maternal) Diabetes Grandmother (Maternal) Lung cancer Uncle Prostate cancer Grandmother (Paternal) Breast cancer Other Crohn's disease Ovarian cancer Social History (Updated 07/25/20 @ 12:16 by Keyonna Bo RN) Smoking Status: Never smoker Second Hand Exposure: No; Hx Alcohol Use: No Hx Substance Use: No Preferred Language: Israeli Communication Ability: Effective [employer] Welter Required: No Beliefs That Will Affect Care: None marital status: Current Living Situation: Spouse current occupational status: employed current occupation: RN Other Information That Helps Us Care for You: No Feels Safe at Home: Yes Safety Concerns: Feels Safe At This Time Assistive Devices: Contacts Review of Systems Review of Systems: As per HPI, all 10 systems reviewed, all other ROS negative Physical Exam Physical Exam: GENERAL: Comfortable, pleasant, no respiratory distress SKIN: Normal color, warm HEENT: [place] palpebral conjunctivae, no ptosis, dry buccal mucosa NECK : Supple, no tenderness CHEST : CTA, tender induration right breast HEART : RRR, no obvious murmurs ABDOMEN: Some distention, nontender EXTREMITIES : No LE swelling/tenderness, no other conspicuous deformities noted NEUROLOGIC : Coherent, no facial asymmetry, no other gross focality Results & Data Results & Data ([facility]) Vital Signs (Past 12 Hours) Vital Signs Temp Pulse Pulse Resp BP BP Pulse Ox 10/05/20 23:20 79 18 108/69 98 10/05/20 22:04 37 C 88 18 121/80 98 Laboratory Results Laboratory Results WBC 12.49 K/uL (4.8-10.8) H 10/05/20 23:25 RBC 3.98 M/uL (4.2-5.4) L 10/05/20 23:25 Hgb 11.8 g/dL (12.0-16.0) L 10/05/20 23:25 Hct 34.4 % (37-47) L 10/05/20 23:25 MCV 86.4 fL (80-100) 10/05/20 23: MCH 29.6 pg (25-34) 10/05/20 23: MCHC 34.3 g/dL (32-36) 10/05/20: RDW Std Deviation 44.2 fL (36.4-46.3) 10/05/20: RDW Coeff of Marci 14.0 % (11.5-14.5) 10/05/20: Plt Count 296 K/uL (130-400) 10/05/20: MPV 9.7 fL (7.4-10.4) 10/05/20: Immature Gran % (Auto) 0.2 % 10/05/20 23: Neut % (Auto) 77.4 % 10/05/20 23: Lymph % (Auto) 10.4 % 10/05/20 23: [place] % (Auto) 9.6 % 10/05/20 23:25 Eos % (Auto) 2.1 % 10/05/20 23: Baso % (Auto) 0.3 % 10/05/20 23: Neut # (Auto) 9.67 K/uL (1.4-6.5) H 10/05/20 23:25 Lymph # (Auto) 1.30 K/uL (1.2-3.4) 10/05/20 23: [place] # (Auto) 1.20 K/uL (0.11-0.59) H 10/05/20 23:25 Eos # (Auto) 0.26 K/uL (0-0.5) 10/05/20 23:25 Baso # (Auto) 0.04 K/uL (0-0.2) 10/05/20: Immature Gran # (Auto) 0.02 K/uL (0.00-0.02) 10/05/20 23:25 Sodium 138 mmol/L (136-145) 10/05/20 23:25 Potassium 3.4 mmol/L (3.5-5.1) L 10/05/20 23: Chloride 106 mmol/L (98-107) 10/05/20 23:25 Carbon Dioxide 26 mmol/L (21-32) 10/05/20 23:25 Anion Gap 6.0 (3-11) 10/05/20 23:25 BUN 22 mg/dl (7-18) H 10/05/20 23:25 Creatinine 0.74 mg/dl (0.6-1.2) 10/05/20 23:25 Est Cr Clr Drug Dosing 82.0 ml/min 10/05/20 23:25 Est GFR ( Amer) 108.0 ml/min 10/05/20 23:25 Est GFR (Non-Af Amer) 93.1 ml/min 10/05/20 23:25 BUN/Creatinine Ratio 29.3 (10-20) H 10/05/20 23:25 Glucose 88 mg/dl (70-99) 10/05/20 23:25 Calcium 8.8 mg/dl (8.5-10.1) 10/05/20 23:25 Total Bilirubin 0.6 mg/dl (0.2-1) 10/05/20 23:25 AST 34 U/L (15-37) 10/05/20 23:25 ALT 50 U/L (12-78) 10/05/20 23:25 Alkaline Phosphatase 94 U/L (45-117) 10/05/20 23:25 Total Protein 6.6 gm/dl (6.4-8.2) 10/05/20 23:25 Albumin 3.4 gm/dl (3.4-5.0) 10/05/20 23:25 Globulin 3.2 gm/dl (2.5-4.0) 10/05/20 23:25 Albumin/Globulin Ratio 1.1 (0.9-2) 10/05/20 23:25 Lipase 102 U/L (73-393) 10/05/20 23:25 COVID-19 Eval Order Covid19 at [facility] 10/06/20 00:55
[2020-10-06] MEDS ORDERED: POTASSIUM CHLORIDE 40 MEQ in SODIUM CHLORIDE 0.9% 1000ML 1,000 ML IV STA (02:01)
[2020-10-06] MEDS ORDERED: PROMETHAZINE HCL 12.5 MG in SODIUM CHLORIDE 0.9% 50 ML IV PRN (03:36)
[2020-10-06] MEDS ORDERED: LORazepam 0.25 MG/0.5 ML VIAL IV PRN (03:36)
[2020-10-06] MEDS ORDERED: oxyCODONE HCL IR 5 MG TAB (IMMEDIATE RELEASE) PO PRN (03:36)
[2020-10-06] MEDS ORDERED: IBUPROFEN 200 MG TAB PO PRN (03:36)
[2020-10-06] MEDS ORDERED: ACETAMINOPHEN 325 MG TAB PO PRN (03:36)
[2020-10-06] MEDS: ACETAMINOPHEN 325 MG TAB PO PRN (03:57)
[2020-10-06] MEDS: DAPTOmycin 200 MG in SYRINGE 0 ML IV SCH (05:44)
[2020-10-06] MEDS: PIPERACILLIN/TAZOBACTAM 3.375 GM in DEXTROSE 5% 100 ML IV SCH ×3 (05:44→21:56)
[2020-10-06 06:31] LABS: Basophils # (auto) 0.05 K/uL (0-0.2); Basophils % (auto) 0.5 %; Eosinophils # (auto) 0.32 K/uL (0-0.5); Eosinophils % (auto) 3.3 %; Hematocrit (blood only) 30.2 % (37-47); Hemoglobin 10.2 g/dL (12.0-16.0); Immature Granulocytes # (auto) 0.02 K/uL (0.00-0.02); Immature Granulocytes % (auto) 0.2 %; Lymphocytes # (auto) 1.47 K/uL (1.2-3.4); Lymphocytes % (auto) 15.3 %; Mean Corpuscular Hemoglobin 28.6 pg (25-34); Mean Corpuscular Hgb Conc 33.8 g/dL (32-36); Mean Corpuscular Volume 84.6 fL (80-100); Mean Platelet Volume 9.5 fL (7.4-10.4); Monocytes # (auto) 1.24 K/uL (0.11-0.59); Monocytes % (auto) 12.9 %; Neutrophils # (auto) 6.49 K/uL (1.4-6.5); Neutrophils % (auto) 67.8 %; Platelet Count 252 K/uL (130-400); RDW Coefficient of Variation 14.1 % (11.5-14.5); RDW Standard Deviation 43.4 fL (36.4-46.3); Red Blood Count 3.57 M/uL (4.2-5.4); White Blood Count 9.59 K/uL (4.8-10.8)
[2020-10-06 06:47] LABS: BUN Creatinine Ratio 24.1 (10-20); Calcium 8.2 mg/dl (8.5-10.1); Creatinine Clr Calc Pharmacy 101.9 ml/min; Est GFR (African American) 121.5 ml/min; Est GFR (Non-African American) 104.8 ml/min; Potassium 4.4 mmol/L (3.5-5.1)
[2020-10-06 08:26] LABS: Appearance Urine Clear (Clear); Bilirubin Urine Negative (Negative); Blood Urine Negative (Negative); Color Urine Yellow; Glucose Urine UA Negative (Negative); Ketones Urine Negative (Negative); Leukocyte Esterase Urine Negative (Negative); Nitrite Urine Negative (Negative); Protein Urine Negative (Negative); Specific Gravity Urine 1.018 (1.000-1.030); Urobilinogen Urine Negative (Negative)
[2020-10-06] MEDS: ADVANCED PROBIOTIC 1250 MG CAPSULE PO SCH (09:28)
[2020-10-06] MEDS: MULTIVITAMIN TAB PO SCH (09:28)
[2020-10-06] MEDS: ESCITALOPRAM OXALATE 10 MG TAB PO SCH (09:28)
[2020-10-06] MEDS: KETOROLAC TROMETHAMINE 15 MG/ML VIAL IV PRN ×2 (14:53→20:08)
--- NOTE | 2020-10-06 15:01 | Surgery Progress Note ---
Date of Service October 06, 2020 Assessment & Plan (1) S/P mastectomy, bilateral: (2) DCIS (ductal carcinoma in situ): (3) Breast infection: Right breast remains cellulitic, but appears to be somewhat improved. WBC normal, remains afebrile. Continue Dapto/zosyn per hospitalist for now. Will r eassess tomorrow; consider right breast ultrasound to look for seroma/abscess if not continuing to improve. Admission and Anticipated Discharge Date Admission Date: October 06, 2020 Subjective Patient seen at bedside, in good spirits. Notes a decrease in right breast pain, feels it is less red Physical Exam Physical Exam: Left breast incisions well-healed, no signs of infection. Right breast incisions well-healed, entire breast mound is erythematous but has faded more to pink and is less edematous, still warm and tender to palpation. Blood cultures pending at the present time. U/A negative Covid negative Laboratory Tests 10/06/20 05:46 WBC 9.59 Hgb 10.2 L WBC on admission 12.5 Results & Data ([facility]) Vital Signs (Past 12 Hours) Vital Signs Temp Pulse Resp BP Pulse Ox 10/06/20 07:37 98.6 F 73 16 94/57 L 97 10/06/20 03:30 97.9 F 72 16 110/72 96 PG Care Time/CCT Total # of Minutes Spent Total Time Spent with Patient: Total time spent is greater than 50% in coordination of care (as documented) at patient's floor/unit and/or counseling patient: Coding Level of Care Code None Diagnoses S/P mastectomy, bilateral Z90.13 DCIS (ductal carcinoma in situ) D05.12 Laterality: left Breast infection N61.0 (1) DCIS (ductal carcinoma in situ) Laterality: left Qualified Code(s): D05.12 - Intraductal carcinoma in situ of left breast
--- NOTE | 2020-10-06 16:06 | Hospitalist Progress Note ---
Date of Service October 06, 2020 Assessment & Plan (1) Cellulitis of right breast: 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)-5 weeks ago Surgical site infection Has redness, increasing local warmth and tenderness over right breast mostly on top, inferior and right lateral area Surgical incision incision sites are nicely healed Did not have any sepsis at presentation Recent dental procedure Has been on intravenous daptomycin and Zosyn Await cultures and sensitivity Appreciate surgery input and recommendation Clinically better Hypokalemia secondary to poor p.o. intake Mood disorder, at baseline DVT prophylaxis. Lovenox subcu Full code Admission and Anticipated Discharge Date Admission Date: October 06, 2020 Subjective 10/06/2020 The patient was seen and examined in medical unit She is status post bilateral mastectomy for DCIS about 5 weeks ago with bilateral breast implant Was admitted yesterday with right breast cellulitis Has been feeling a little better since admission with decreasing redness and swelling Denies any fever and/or chills Review of Systems Review of Systems: All systems reviewed and are unremarkable except as noted below Integumentary: + erythema (Right breast and adjoining area) and + change in skin color (Right breast and adjoining area) Bilateral mastectomies with breast implant Physical Exam Physical Exam: Lying in bed comfortably Constitutional: well developed and well nourished; not ill appearing Eyes: PERRL, conjunctivae normal, anicteric sclerae ENMT: external ear and nose normal, oropharynx normal Neck: trachea midline, no thyromegaly Respiratory: + labored breathing; no respiratory distress Auscultation: lungs clear to auscultation bilaterally Cardiovascular: Rate/Rhythm: regular rate and regular rhythm Heart Sounds: no murmur Extremities: no edema Chest (Breasts): Breast: + skin thickening (Right lateral breast area has thickened skin) and + breast tenderness (Right breast tenderness with adjoining redness and increasing warmth); + abnormal inspection of breast (Bilateral breast implant, surgical incision sites are nicely healed) Gastrointestinal (Abdomen): Inspection/Auscultation: normal bowel sounds; abdomen not distended Percussion/Palpation: abdomen soft; abdomen nontender Musculoskeletal: No acute arthritis in any joint Neurologic: Alert, awake and oriented x3 Psychiatric: A+Ox3, euthymic affect Lymphatic: no cervical or axillary lymphadenopathy Results & Data Results & Data ([facility]) Vital Signs (Past 12 Hours) Vital Signs Temp Pulse Resp BP Pulse Ox 10/06/20 15:04 37.0 C 74 16 102/66 97 10/06/20 07:37 37 C 73 16 94/57 L 97 Laboratory Results Short CBC 10/05/20 10/06/20 Range/Units 23:25 05:46 WBC 12.49 H 9.59 (4.8-10.8) K/uL Hgb 11.8 L 10.2 L (12.0-16.0) g/dL Hct 34.4 L 30.2 L (37-47) % Plt Count 296 252 (130-400) K/uL BMP 10/05/20 10/06/20 23:25 05:46 Sodium 138 141 Potassium 3.4 L 4.4 D Chloride 106 113 H Carbon Dioxide 26 24 BUN 22 H 14 Creatinine 0.74 0.60 Glucose 88 86 Calcium 8.8 8.2 L Liver Function 10/05/20 Range/Units 23:25 Total Bilirubin 0.6 (0.2-1) mg/dl AST 34 (15-37) U/L ALT 50 (12-78) U/L Alkaline Phosphatase 94 (45-117) U/L Albumin 3.4 (3.4-5.0) gm/dl Urine 10/06/20 Range/Units 08:22 Urine Color Yellow Urine Appearance Clear (Clear) Urine pH 5.0 (4.5-7.5) Ur Specific [place] 1.018 (1.000-1.030) Urine Protein Negative (Negative) Urine Glucose (UA) Negative (Negative) Medications Administered Current Inpatient Medications Acetaminophen (Acetaminophen 325 Mg Tab) 650 mg PO Q4H PRN PRN Reason: pain/fever Stop: 11/05/20 03:35 Last Admin: 10/06/20 03:57 Dose: 650 mg Documented by: Clonazepam (Clonazepam 0.5 Mg Tab) 0.5 mg PO DAILY PRN PRN Reason: restless legs Stop: 11/05/20 03:35 Escitalopram Oxalate (Escitalopram Oxalate 10 Mg Tab) 10 mg PO QAM [facility] Stop: 11/05/20 08:59 Last Admin: 10/06/20 09:28 Dose: 10 mg Documented by: Lorazepam (Ativan) 0.25 mg in 0.5 mls @ 0.5 mls/min IV Q4H PRN PRN Reason: Anxiety Stop: 11/05/20 03:35 Promethazine HCl 12.5 mg/ (Sodium Chloride) 50.5 mls @ 202 mls/hr IV Q6H PRN PRN Reason: Nausea And Vomiting Stop: 11/05/20 03:35 Daptomycin 200 mg/ Syringe 4 mls @ 2.5 mls/min IV Q24H OSKAR; Protocol Stop: 10/13/20 05:59 Last Admin: 10/06/20 05:44 Dose: 2.5 mls/min Documented by: Piperacillin Sod/Tazobactam (Sod 3.375 gm/ Dextrose) 115 mls @ 28.75 mls/hr IV Q8H OSKAR; Protocol Stop: 10/13/20 05:59 Last Admin: 10/06/20 14:47 Dose: 28.8 mls/hr Documented by: Ibuprofen (Ibuprofen 200 Mg Tab) 200 mg PO Q6H PRN PRN Reason: Mild Pain Stop: 11/05/20 03:35 Ketorolac Tromethamine (Ketorolac Tromethamine 15 Mg/Ml Vial) 15 mg IV Q4H PRN PRN Reason: Pain Stop: 10/11/20 03:35 Last Admin: 10/06/20 14:53 Dose: 15 mg Documented by: Lactobacillus Acidoph/Casei/Rhamnos (Advanced Probiotic 1250 Mg Capsule) 2 cap PO QAM OSKAR Stop: 11/05/20 08:59 Last Admin: 10/06/20 09:28 Dose: 2 cap Documented by: Miscellaneous Information (Piperacill/Tazobac Consult Active) 1 ea N/A UD PRN PRN Reason: Consult Stop: 11/05/20 00:11 Miscellaneous Information (Daptomycin Consult Active) 1 ea N/A UD PRN PRN Reason: Consult Stop: 11/05/20 08:59 Multivitamins (Multivitamin Tab) 1 tab PO DAILY [facility] Stop: 11/05/20 08:59 Last Admin: 10/06/20 09:28 Dose: 1 tab Documented by: Oxycodone HCl (Oxycodone Hcl Ir 5 Mg Tab (Immediate Release)) 5 mg PO Q4H PRN PRN Reason: Pain Stop: 10/20/20 03:35
[2020-10-07] MEDS: ACETAMINOPHEN 325 MG TAB PO PRN ×2 (01:45→12:29)
[2020-10-07] MEDS: clonazePAM 0.5 MG TAB PO PRN ×2 (02:48→21:45)
--- NOTE | 2020-10-07 03:07 | Emergency Department Note ---
Impression & Plan Rash ED Provider Note NAME: BIPIN RUIZ AGE: 54 SEX: F : 1965 ARRIVES VIA: Walk-In INFORMANT: Patient, Dr Oreilly ED PROVIDER(S): Mauricio Hess MD CHIEF COMPLAINT: Rash HPI: This 54-year-old female who presents to the emergency department complaining of right breast rash. The patient reports she had a double mastectomy approximately 2 weeks ago. Prior to that she had had a dental office visit. She was sent to the emergency department by Dr. Oreilly. The patient reports that the pain is a burning sensation with no radiation. Patient reports nothing seems to make it better or worse. The patient has not taken anything for it prior to arrival. ROS: See above HPI for pertinent positives & negatives. A total of 10 systems reviewed and were otherwise negative. PAST MEDICAL HISTORY: See Below PAST SURGICAL HISTORY: See Below FAMILY HISTORY: See Below SOCIAL HISTORY: See Below HOME MEDICATIONS: See Below ALLERGIES: See Below VITALS: See Below PHYSICAL EXAMINATION: VITAL SIGNS - Vital signs and nursing notes were reviewed. GENERAL -she is not -[id number] female appearing stated age who is in no acute distress. Communicates well with provider and answers questions appropriately. SKIN - Without rashes. HEAD - NC/AT. EYES - PERRL with EOMI bilaterally. Sclera anicteric. Palpebral conjunctiva pink and moist with no injection noted. EARS - No deformities of external structures noted on gross examination bilaterally. NOSE - Midline and without cyanosis. No epistaxis or purulent drainage noted. Septum midline without deviation or septal hematoma noted. MOUTH/OROPHARYNX - Without perioral cyanosis. Buccal mucosa pink and moist and without leukoplakia. Tongue midline with equal elevation of palate bilaterally. No tonsillar hypertrophy, erythema, or exudates noted. NECK - Neck with FROM. Supple to palpation. No nuchal rigidity. LUNGS - Chest wall symmetric without accessory muscle use, intercostals retractions, or central cyanosis. Normal vesicular breath sounds CTA B/L. No wheezes, rales, or rhonchi appreciated. CARDIAC - RRR with S1/S2. No murmur, rubs, or gallops appreciated. ABDOMEN - Abdominal contour without pulsations or visible masses. BS normoactive all four quadrants. No tenderness, palpable masses, hepatosplenome sherri, or ascites noted. EXTREMITIES - No clubbing or peripheral cyanosis. No pretibial edema present. +3/5 radial, posterior tibial, and dorsalis pedis pulses palpated throughout. +5/5 strength noted in UE/LE bilaterally. NEUROLOGIC - Cranial nerves II through XII grossly intact. Sensory intact to light touch throughout. Patellar reflexes +2/4. PSYCH - A&Ox3 and cooperates fully with examiner. Pt is very pleasant and interacts well with examiner. MEDICAL DECISION MAKING: Patient was seen and evaluated as above in room B6. Review was performed of nursing notes and vital signs. I did review pertinent previous visits and patient history. After obtaining a thorough history and physical examination the above work up was performed. This 54-year-old female who presents emergency department complaining of burning. The patient does have an elevation in her white blood cell count. She was started on broad-spectrum antibiotics including Zosyn and vancomycin. She was discussed with the plastic surgeon as well as the hospitalist service who agreed to meet the patient. An order was placed for continuous cardiac monitoring. The monitor shows a rate of 84 with Normal Sinus rhythm. The patient was evaluated during a period of high volume and high acuity during the global COVID-19 pandemic, and that diagnosis was suspected/considered upon their initial presentation. Their evaluation, treatment and testing was consistent with current guidelines for patients who present with complaints or symptoms that may be related to COVID-19. Patient was seen while provider was wearing PPE. Triage Nursing notes reviewed. Prior medical records reviewed Vital Signs: reviewed and remarkable for no significant abnormalities Differential diagnosis: Cellulitis, abscess, MRSA infection, DVT, necrotizing fasciitis, dermatitis, drug eruption, allergic reaction, as well as other pathologies. ER treatment provided: See below Laboratory studies: As stated above and show below. 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 Breast, left (breast reduction): - Ductal carcinoma in situ (DCIS), intermediate grade, is seen. Depression Esophageal stricture s/p dilation GERD (gastroesophageal reflux disease) History of eating disorder Leiomyoma Menorrhagia Pancolitis hx Restless leg syndrome Terminal ileitis hx Surgical History (Updated 10/06/20 @ 00:25 by Janee Oreilly MD) H/O bilateral breast reduction surgery b/l breast reduction (07/10/20): Grade view 3, MAC#3, ETT 7.0 at [facility] H/O tubal ligation History of appendectomy History of breast biopsy Left (lipoma) History of cataract surgery R/L History of colonoscopy History of esophagogastroduodenoscopy (EGD) History of tooth extraction S/P section x1 S/P ear surgery Left ear exploratory surgery S/P laparoscopic cholecystectomy S/P mastectomy, bilateral (09/02/20) Bilateral Breast Mastectomy with [place] Lymph Node Biopsy Injection Only(Bilateral) - Yves Robertson MD, FACS s Bilateral Breast Immediate Reconstruction with Tissue Expanders and Ac ellular Matrix(Bilateral) - Janee Oreilly MD Slow to wake up after anesthesia "Slow to wake" after cholecystectomy (per pt, was told still slow to wake with "child sized dose" of anesthesia), no anesthesia complications noted per more recent b/l breast reduction done at [facility] 07/2020 Family History Father Lung cancer Small cell lung, in six weeks Grandfather (Maternal) Diabetes Grandmother (Maternal) Lung cancer Uncle Prostate cancer Grandmother (Paternal) Breast cancer Other Crohn's disease Ovarian cancer Social History (Updated 07/25/20 @ 12:16 by Keyonna Bo, RACQUEL) Smoking Status: Never smoker Second Hand Exposure: No; Hx Alcohol Use: No Hx Substance Use: No Preferred Language: Italian Communication Ability: Effective Survey Chief Required: No Beliefs That Will Affect Care: None marital status: Current Living Situation: Spouse current occupational status: employed current occupation: RN Other Information That Helps Us Care for You: No Feels Safe at Home: Yes Safety Concerns: Feels Safe At This Time Assistive Devices: None Allergies Allergies Allergy/AdvReac Type Severity Reaction Status Date / Time bee venom protein (honey bee) Allergy Intermediate Hives, Verified 10/06/20 02:03 chest tightness bacitracin Allergy Mild Rash Verified 10/06/20 02:03 [From Neosporin ([id number])] latex Allergy Mild Skin Verified 10/06/20 02:03 irritation neomycin Allergy Mild Rash Verified 10/06/20 02:03 [From Neosporin ([id number])] polymyxin B Allergy Mild Rash Verified 10/06/20 02:03 [From Neosporin ([id number])] Home Meds Home Medications Medication Instructions Recorded Confirmed epinephrine [EpiPen] 0.3 mg IM Q3H PRN 02/23/18 10/06/20 escitalopram oxalate [Lexapro] 10 mg PO QAM 02/23/18 10/06/20 Probiotic 6,000 mmu cells PO QAM 06/27/20 10/06/20 acetaminophen [Tylenol Extra 1,000 mg PO TID PRN 10/06/20 10/06/20 Strength] apple cider vinegar 0 mg PO DAILY 10/06/20 10/06/20 cholecalciferol (vitamin D3) 125 mcg PO DAILY 10/06/20 10/06/20 [Vitamin D3] clonazepam 0.5 mg PO DAILY PRN 10/06/20 10/06/20 krill oil 500 mg PO DAILY 10/06/20 10/06/20 multivitamin 1 tab PO DAILY 10/06/20 10/06/20 oxycodone-acetaminophen 1 tab PO Q4 PRN 10/06/20 10/06/20 Results & Data (ED) Home Medications Current Medication List: was personally reviewed by me Laboratory Data Attestation: I reviewed the patient's lab results. Result diagrams: 10/06/20 05:46 10/06/20 05:46 Lab Results 10/05/20 10/05/20 10/06/20 Range/Units 23:25 23:25 00:55 WBC 12.49 H (4.8-10.8) K/uL RBC 3.98 L (4.2-5.4) M/uL Hgb 11.8 L (12.0-16.0) g/dL Hct 34.4 L (37-47) % MCV 86.4 (80-100) fL MCH 29.6 (25-34) pg MCHC 34.3 (32-36) g/dL RDW Std Deviation 44.2 (36.4-46.3) fL RDW Coeff of Marci 14.0 (11.5-14.5) % Plt Count 296 (130-400) K/uL MPV 9.7 (7.4-10.4) fL Immature Gran % (Auto) 0.2 % Neut % (Auto) 77.4 % Lymph % (Auto) 10.4 % [place] % (Auto) 9.6 % Eos % (Auto) 2.1 % Baso % (Auto) 0.3 % Neut # (Auto) 9.67 H (1.4-6.5) K/uL Lymph # (Auto) 1.30 (1.2-3.4) K/uL [place] # (Auto) 1.20 H (0.11-0.59) K/uL Eos # (Auto) 0.26 (0-0.5) K/uL Baso # (Auto) 0.04 (0-0.2) K/uL Immature Gran # (Auto) 0.02 (0.00-0.02) K/uL Sodium 138 (136-145) mmol/L Potassium 3.4 L (3.5-5.1) mmol/L Chloride 106 (98-107) mmol/L Carbon Dioxide 26 (21-32) mmol/L Anion Gap 6.0 (3-11) BUN 22 H (7-18) mg/dl Creatinine 0.74 (0.6-1.2) mg/dl Est Cr Clr Drug Dosing 82.0 ml/min Est GFR ( Amer) 108.0 ml/min Est GFR (Non-Af Amer) 93.1 ml/min BUN/Creatinine Ratio 29.3 H (10-20) Glucose 88 (70-99) mg/dl Calcium 8.8 (8.5-10.1) mg/dl Total Bilirubin 0.6 (0.2-1) mg/dl AST 34 (15-37) U/L ALT 50 (12-78) U/L Alkaline Phosphatase 94 (45-117) U/L Total Protein 6.6 (6.4-8.2) gm/dl Albumin 3.4 (3.4-5.0) gm/dl Globulin 3.2 (2.5-4.0) gm/dl Albumin/Globulin Ratio 1.1 (0.9-2) Lipase 102 (73-393) U/L COVID-19 Eval Order Covid19 at [facility] SARS-CoV-2 (PCR) (Negative) 10/06/20 Range/Units 00:55 WBC (4.8-10.8) K/uL RBC (4.2-5.4) M/uL Hgb (12.0-16.0) g/dL Hct (37-47) % MCV (80-100) fL MCH (25-34) pg MCHC (32-36) g/dL RDW Std Deviation (36.4-46.3) fL RDW Coeff of Marci (11.5-14.5) % Plt Count (130-400) K/uL MPV (7.4-10.4) fL Immature Gran % (Auto) % Neut % (Auto) % Lymph % (Auto) % [place] % (Auto) % Eos % (Auto) % Baso % (Auto) % Neut # (Auto) (1.4-6.5) K/uL Lymph # (Auto) (1.2-3.4) K/uL [place] # (Auto) (0.11-0.59) K/uL Eos # (Auto) (0-0.5) K/uL Baso # (Auto) (0-0.2) K/uL Immature Gran # (Auto) (0.00-0.02) K/uL Sodium (136-145) mmol/L Potassium (3.5-5.1) mmol/L Chloride (98-107) mmol/L Carbon Dioxide (21-32) mmol/L Anion Gap (3-11) BUN (7-18) mg/dl Creatinine (0.6-1.2) mg/dl Est Cr Clr Drug Dosing ml/min Est GFR ( Amer) ml/min Est GFR (Non-Af Amer) ml/min BUN/Creatinine Ratio (10-20) Glucose (70-99) mg/dl Calcium (8.5-10.1) mg/dl Total Bilirubin (0.2-1) mg/dl AST (15-37) U/L ALT (12-78) U/L Alkaline Phosphatase (45-117) U/L Total Protein (6.4-8.2) gm/dl Albumin (3.4-5.0) gm/dl Globulin (2.5-4.0) gm/dl Albumin/Globulin Ratio (0.9-2) Lipase (73-393) U/L COVID-19 Eval Order SARS-CoV-2 (PCR) NEGATIVE (Negative) Administered Medications Acetaminophen (Acetaminophen 325 Mg Tab) 650 mg PO Q4H PRN PRN Reason: pain/fever Stop: 11/05/20 03:35 Last Admin: 10/07/20 01:45 Dose: 650 mg Documented by: [id number] Admin: 10/06/20 03:57 Dose: 650 mg Documented by: [id number] Clonazepam (Clonazepam 0.5 Mg Tab) 0.5 mg PO DAILY PRN PRN Reason: restless legs Stop: 11/05/20 03:35 Last Admin: 10/07/20 02:48 Dose: 0.5 mg Documented by: [id number] Escitalopram Oxalate (Escitalopram Oxalate 10 Mg Tab) 10 mg PO QAM OSKAR Stop: 11/05/20 08:59 Last Admin: 10/06/20 09:28 Dose: 10 mg Documented by: [id number] Daptomycin 200 mg/ Syringe 4 mls @ 2.5 mls/min IV Q24H OSKAR; Protocol Stop: 10/13/20 05:59 Last Admin: 10/06/20 05:44 Dose: 2.5 mls/min Documented by: [id number] Piperacillin Sod/Tazobactam (Sod 3.375 gm/ Dextrose) 115 mls @ 28.75 mls/hr IV Q8H OSKAR; Protocol Stop: 10/13/20 05:59 Last Infusion: 10/07/20 01:50 Dose: 0 mls/hr Documented by: [id number] Admin: 10/06/20 21:56 Dose: 28.8 mls/hr Documented by: [id number] Infusion: 10/06/20 19:00 Dose: 0 mls/hr Documented by: [id number] Admin: 10/06/20 14:47 Dose: 28.8 mls/hr Documented by: [id number] Infusion: 10/06/20 09:44 Dose: 0 mls/hr Documented by: [id number] Admin: 10/06/20 05:44 Dose: 28.8 mls/hr Documented by: [id number] Ketorolac Tromethamine (Ketorolac Tromethamine 15 Mg/Ml Vial) 15 mg IV Q4H PRN PRN Reason: Pain Stop: 10/11/20 03:35 Last Admin: 10/06/20 20:08 Dose: 15 mg Documented by: [id number] Admin: 10/06/20 14:53 Dose: 15 mg Documented by: [id number] Lactobacillus Acidoph/Casei/Rhamnos (Advanced Probiotic 1250 Mg Capsule) 2 cap PO QAM OSKAR Stop: 11/05/20 08:59 Last Admin: 10/06/20 09:28 Dose: 2 cap Documented by: [id number] Multivitamins (Multivitamin Tab) 1 tab PO DAILY OSKAR Stop: 11/05/20 08:59 Last Admin: 10/06/20 09:28 Dose: 1 tab Documented by: [id number] Discontinued Medications Piperacillin Sod/Tazobactam Sod (Zosyn) 4.5 gm in 120 mls @ 240 mls/hr IV NOW ONE Stop: 10/06/20 00:41 Last Infusion: 10/06/20 01:29 Dose: 0 mls/hr Documented by: [id number] Admin: 10/06/20 00:56 Dose: 240 mls/hr Documented by: [id number] Vancomycin HCl 1,250 mg/ (Sodium Chloride) 525 mls @ 200 mls/hr IV NOW ONE Stop: 10/06/20 02:49 Last Infusion: 10/06/20 04:15 Dose: 0 mls/hr Documented by: [id number] Admin: 10/06/20 01:29 Dose: 200 mls/hr Documented by: [id number] Sodium Chloride (Nss 1000ml) 1,000 mls @ 999 mls/hr IV .Q1H1M ONE Stop: 10/06/20 01:13 Last Infusion: 10/06/20 03:50 Dose: 0 mls/hr Documented by: [id number] Admin: 10/06/20 01:20 Dose: 999 mls/hr Documented by: [id number] Potassium Chloride 40 meq/ (Sodium Chloride) 1,020 mls @ 100 mls/hr IV .[id number] STA Stop: 10/06/20 12:12 Last Infusion: 10/06/20 14:24 Dose: 0 mls/hr Documented by: [id number] Admin: 10/06/20 04:12 Dose: 100 mls/hr Documented by: [id number] Potassium Chloride (Potassium Chloride Crtab 20 Meq Tabcr) 40 meq PO NOW STA Stop: 10/06/20 00:49 Last Admin: 10/06/20 01:19 Dose: 40 meq Documented by: [id number] Discharge Plan Visit Data Chief Complaint: Infection Stated Complaint: INFECTION/SWELLING-NEED ABX ED Provider: Mauricio Hess Discharge Problem: Rash Patient Disposition: Admitted As Inpatient Discharge Instructions Interventions: ED Discharge Assessment Last Done: 10/06/20 03:03
[2020-10-07 05:49] LABS: Basophils # (auto) 0.03 K/uL (0-0.2); Basophils % (auto) 0.5 %; Eosinophils # (auto) 0.28 K/uL (0-0.5); Eosinophils % (auto) 4.3 %; Hematocrit (blood only) 30.3 % (37-47); Hemoglobin 10.2 g/dL (12.0-16.0); Immature Granulocytes # (auto) 0.01 K/uL (0.00-0.02); Immature Granulocytes % (auto) 0.2 %; Lymphocytes # (auto) 1.48 K/uL (1.2-3.4); Lymphocytes % (auto) 22.8 %; Mean Corpuscular Hemoglobin 28.9 pg (25-34); Mean Corpuscular Hgb Conc 33.7 g/dL (32-36); Mean Corpuscular Volume 85.8 fL (80-100); Mean Platelet Volume 9.6 fL (7.4-10.4); Monocytes # (auto) 0.77 K/uL (0.11-0.59); Monocytes % (auto) 11.9 %; Neutrophils # (auto) 3.92 K/uL (1.4-6.5); Neutrophils % (auto) 60.3 %; Platelet Count 266 K/uL (130-400); RDW Coefficient of Variation 14.3 % (11.5-14.5); RDW Standard Deviation 44.9 fL (36.4-46.3); Red Blood Count 3.53 M/uL (4.2-5.4); White Blood Count 6.49 K/uL (4.8-10.8)
[2020-10-07] MEDS: PIPERACILLIN/TAZOBACTAM 3.375 GM in DEXTROSE 5% 100 ML IV SCH ×3 (06:06→21:46)
[2020-10-07] MEDS: DAPTOmycin 200 MG in SYRINGE 0 ML IV SCH (06:06)
[2020-10-07 06:19] LABS: Calcium 8.2 mg/dl (8.5-10.1); Creatinine Clr Calc Pharmacy 107.3 ml/min; Est GFR (African American) 123.5 ml/min; Est GFR (Non-African American) 106.6 ml/min; Potassium 4.1 mmol/L (3.5-5.1)
[2020-10-07] MEDS: ESCITALOPRAM OXALATE 10 MG TAB PO SCH (08:28)
[2020-10-07] MEDS: MULTIVITAMIN TAB PO SCH (08:29)
[2020-10-07] MEDS: ADVANCED PROBIOTIC 1250 MG CAPSULE PO SCH (08:29)
--- NOTE | 2020-10-07 10:12 | Surgery Progress Note ---
Date of Service October 07, 2020 Assessment & Plan (1) Cellulitis of right breast: Overall improving, clinically a seroma is present. Will plan for ultrasound guided aspiration, possible drain placement. Continue IV abx for now. She is hoping to maintain device, but is aware there is a possibility it will need to be removed. (2) Breast infection: (3) S/P mastectomy, bilateral: Admission and Anticipated Discharge Date Admission Date: October 06, 2020 Subjective Patient seen at bedside. Pain is better controlled. No fever. She feels redness of right breast is improving. Physical Exam Physical Exam: Left breast incisions well-healed, no signs of infection. Right breast incisions well-healed, entire breast mound is erythematous but has faded more to pink and is less edematous, still warm and tender to palpation. Right breast is larger, clinically consistent with seroma Blood cultures negative so far U/A negative Covid neg WBC on admission 12.5, now 6 Results & Data ([facility]) Vital Signs (Past 12 Hours) Vital Signs Temp Pulse Resp BP Pulse Ox 10/07/20 07:37 98.8 F 73 16 100/64 96 10/06/20 22:28 98.8 F 84 16 99/64 L 96 PG Care Time/CCT Total # of Minutes Spent Total Time Spent with Patient: Total time spent is greater than 50% in coordination of care (as documented) at patient's floor/unit and/or counseling patient: Coding Level of Care Code None Diagnoses Cellulitis of right breast N61.0 Breast infection N61.0 S/P mastectomy, bilateral Z90.13
--- NOTE | 2020-10-07 13:16 | Ultrasound Report ---
US breast RT limited HISTORY: 54 years-old Female right breast cellulitis, possible seroma acute pain and swelling of the right breast with recent surgery COMPARISON: Right breast ultrasound 01/12/2019 TECHNIQUE: Multiple real-time sonographic images of the right breast were obtained assessing grayscal e appearance and color flow FINDINGS: There is a crescentic mildly complex fluid collection noted along the lateral right breast distributi on which is contiguous with a smaller fluid collection at the midline. The largest pocket of the luiz ection overall measures approximately 6.6 x 2.3 x 6.5 cm laterally. Partially imaged tissue expanders of the right breast are present. IMPRESSION: 6.6 cm fluid collection of the lateral right breast suggestive of seroma, hematoma or abs cess. ACT 112: Negative or not required by law. The above report was generated using voice recognition software. It may contain grammatical, syntax o r spelling errors. Electronically signed by: Attila Ewing M.D. 10/07/2020 1:14 PM
--- NOTE | 2020-10-07 14:40 | Ultrasound Report ---
[facility]artie[facility]bulla[facility]cys CLINICAL HISTORY: Right breast fluid collection with recent bilateral mastectomy. COMPARISON STUDY: Right breast ultrasound of same day. PROCEDURE: The risks, benefits, and alternatives to the procedure were discussed with the patient. Wr itten informed consent was obtained. The patient was placed supine in ultrasound, and the fluid colle ction within the lateral right chest wall was localized by ultrasound and selected for drainage. The right chest wall was prepped and draped in the usual sterile fashion. The complex fluid collection wa s aspirated under ultrasound guidance with an 18-gauge needle. 150 mL of serous and serosanguineous f luid was drained from the collection. The postprocedural images demonstrated near complete drainage o f the collection. 90 mL was sent to the laboratory for analysis. The patient tolerated the procedure well and left the department in satisfactory condition. IMPRESSION: Completed aspiration of a right chest wall fluid collection. ACT 112: Negative or not required by law. The above report was generated using voice recognition software. It may contain grammatical, syntax o r spelling errors. Electronically signed by: Attila Ewing M.D. 10/07/2020 2:38 PM
--- NOTE | 2020-10-07 14:59 | Hospitalist Progress Note ---
Date of Service October 07, 2020 Assessment & Plan (1) Cellulitis of right breast: 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)-5 weeks ago Surgical site infection Has redness, increasing local warmth and tenderness over right breast mostly on top, inferior and right lateral area Surgical incision incision sites are nicely healed Did not have any sepsis at presentation Recent dental procedure Has been on intravenous daptomycin and Zosyn Await cultures and sensitivity Appreciate surgery input and recommendation Clinically better Status post ultrasound-guided aspiration of seroma and that was sent for Gram stain and culture Breast looks smaller in size but the redness over it is persisting Will get ID input and recommendation Hypokalemia secondary to poor p.o. intake Mood disorder, at baseline DVT prophylaxis. [facility] subcu Full code Admission and Anticipated Discharge Date Admission Date: October 06, 2020 Subjective 10/06/2020 The patient was seen and examined in medical unit She is status post bilateral mastectomy for DCIS about 5 weeks ago with bilateral breast implant Was admitted yesterday with right breast cellulitis Has been feeling a little better since admission with decreasing redness and swelling Denies any fever and/or chills 10/07/2020 The patient was seen and examined in medical floor She is a status post aspiration of right breast seroma Her right breast is smaller compared with yesterday but the redness over it is persisting No fever and/or chills Review of Systems Review of Systems: All systems reviewed and are unremarkable except as noted below Integumentary: + erythema (Right breast and adjoining area) and + change in skin color (Right breast and adjoining area) Bilateral mastectomies with b reast implant Physical Exam Physical Exam: Lying in bed comfortably Constitutional: well developed and well nourished; not ill appearing Eyes: PERRL, conjunctivae normal, anicteric sclerae ENMT: external ear and nose normal, oropharynx normal Neck: trachea midline, no thyromegaly Respiratory: + labored breathing; no respiratory distress Auscultation: lungs clear to auscultation bilaterally Cardiovascular: Rate/Rhythm: regular rate and regular rhythm Heart Sounds: no murmur Extremities: no edema Chest (Breasts): Breast: + skin thickening (Right lateral breast area has thickened skin) and + breast tenderness (Right breast tenderness with adjoining redness and increasing warmth); + abnormal inspection of breast (Bilateral breast implant, surgical incision sites are nicely healed) Gastrointestinal (Abdomen): Inspection/Auscultation: normal bowel sounds; abdomen not distended Percussion/Palpation: abdomen soft; abdomen nontender Musculoskeletal: No acute arthritis in any joint Neurologic: Alert, awake and oriented x3. No focal sensory and motor deficit appreciated Psychiatric: A+Ox3, euthymic affect Lymphatic: no cervical or axillary lymphadenopathy Results & Data Results & Data ([facility]) Vital Signs (Past 12 Hours) Vital Signs Temp Pulse Resp BP Pulse Ox 10/07/20 07:37 37.1 C 73 16 100/64 96 Laboratory Results Short CBC 10/07/20 Range/Units 05:32 WBC 6.49 (4.8-10.8) K/uL Hgb 10.2 L (12.0-16.0) g/dL Hct 30.3 L (37-47) % Plt Count 266 (130-400) K/uL BMP 10/07/20 05:32 Sodium 143 Potassium 4.1 Chloride 112 H Carbon Dioxide 26 BUN 9 D Creatinine 0.57 L Glucose 91 Calcium 8.2 L Cardiac Enzymes 10/07/20 Range/Units 05:32 Total Creatine Kinase 30 (26-192) U/L Medications Administered Current Inpatient Medications Acetaminophen (Acetaminophen 325 Mg Tab) 650 mg PO Q4H PRN PRN Reason: pain/fever Stop: 11/05/20 03:35 Last Admin: 10/07/20 12:29 Dose: 650 mg Documented by: Clonazepam (Clonazepam 0.5 Mg Tab) 0.5 mg PO DAILY PRN PRN Reason: restless legs Stop: 11/05/20 03:35 Last Admin: 10/07/20 02:48 Dose: 0.5 mg Documented by: Escitalopram Oxalate (Escitalopram Oxalate 10 Mg Tab) [facility] [place] Stop: 11/05/20 08:59 Last Admin: 10/07/20 08:28 Dose: 10 mg Documented by: Lorazepam (Ativan) 0.25 mg in 0.5 mls @ 0.5 mls/min IV Q4H PRN PRN Reason: Anxiety Stop: 11/05/20 03:35 Promethazine HCl 12.5 mg/ (Sodium Chloride) 50.5 mls @ 202 mls/hr IV Q6H PRN PRN Reason: Nausea And Vomiting Stop: 11/05/20 03:35 Piperacillin Sod/Tazobactam (Sod 3.375 gm/ Dextrose) 115 mls @ 28.75 mls/hr IV Q8H [facility]; Protocol Stop: 10/13/20 05:59 Last Admin: 10/07/20 13:49 Dose: 28.8 mls/hr Documented by: Daptomycin 225 mg/ Syringe 4.5 mls @ 2.25 mls/min IV Q24H [facility]; Protocol Stop: 10/13/20 05:59 Ibuprofen (Ibuprofen 200 Mg Tab) 200 mg PO Q6H PRN PRN Reason: Mild Pain Stop: 11/05/20 03:35 Ketorolac Tromethamine (Ketorolac Tromethamine 15 Mg/Ml Vial) 15 mg IV Q4H PRN PRN Reason: Pain Stop: 10/11/20 03:35 Last Admin: 10/06/20 20:08 Dose: 15 mg Documented by: Lactobacillus Acidoph/Casei/Rhamnos (Advanced Probiotic 1250 Mg Capsule) 2 cap PO QAM OSKAR Stop: 11/05/20 08:59 Last Admin: 10/07/20 08:29 Dose: 2 cap Documented by: Miscellaneous Information (Piperacill/Tazobac Consult Active) 1 ea N/A UD PRN PRN Reason: Consult Stop: 11/05/20 00:11 Miscellaneous Information (Daptomycin Consult Active) 1 ea N/A UD PRN PRN Reason: Consult Stop: 11/05/20 08:59 Multivitamins (Multivitamin Tab) 1 tab PO DAILY [facility] Stop: 11/05/20 08:59 Last Admin: 10/07/20 08:29 Dose: 1 tab Documented by: Oxycodone HCl (Oxycodone Hcl Ir 5 Mg Tab (Immediate Release)) 5 mg PO Q4H PRN PRN Reason: Pain Stop: 10/20/20 03:35
[2020-10-08] MEDS: PIPERACILLIN/TAZOBACTAM 3.375 GM in DEXTROSE 5% 100 ML IV SCH ×2 (05:37→14:06)
[2020-10-08] MEDS: DAPTOmycin 225 MG in SYRINGE 0 ML IV SCH (05:37)
[2020-10-08 08:25] LABS: Basophils # (auto) 0.07 K/uL (0-0.2); Basophils % (auto) 1.4 %; Eosinophils # (auto) 0.32 K/uL (0-0.5); Eosinophils % (auto) 6.4 %; Hematocrit (blood only) 33.9 % (37-47); Hemoglobin 11.4 g/dL (12.0-16.0); Immature Granulocytes # (auto) 0.01 K/uL (0.00-0.02); Immature Granulocytes % (auto) 0.2 %; Lymphocytes # (auto) 1.32 K/uL (1.2-3.4); Lymphocytes % (auto) 26.3 %; Mean Corpuscular Hemoglobin 28.5 pg (25-34); Mean Corpuscular Hgb Conc 33.6 g/dL (32-36); Mean Corpuscular Volume 84.8 fL (80-100); Mean Platelet Volume 9.7 fL (7.4-10.4); Monocytes # (auto) 0.64 K/uL (0.11-0.59); Monocytes % (auto) 12.8 %; Neutrophils # (auto) 2.65 K/uL (1.4-6.5); Neutrophils % (auto) 52.9 %; Platelet Count 315 K/uL (130-400); RDW Coefficient of Variation 14.1 % (11.5-14.5); RDW Standard Deviation 44.3 fL (36.4-46.3); White Blood Count 5.01 K/uL (4.8-10.8)
[2020-10-08 08:36] LABS: BUN Creatinine Ratio 15.5 (10-20); Creatinine Clr Calc Pharmacy 107.3 ml/min; Est GFR (African American) 123.5 ml/min; Est GFR (Non-African American) 106.6 ml/min
[2020-10-08] MEDS: MULTIVITAMIN TAB PO SCH (09:12)
[2020-10-08] MEDS: ESCITALOPRAM OXALATE 10 MG TAB PO SCH (09:13)
[2020-10-08] MEDS: ADVANCED PROBIOTIC 1250 MG CAPSULE PO SCH (09:13)
--- NOTE | 2020-10-08 09:47 | Surgery Progress Note ---
Date of Service October 08, 2020 Assessment & Plan (1) Breast infection: Patient does not want to lose device, would be interested in salvage attempt. Discussed that this can be successful in some cases. As she has been afebrile, WBC normalized quickly and there are no wounds, she is potentially a candidate for device exchange, curettage of capsule and washout with antibiotic bead placement vs removal based on appearance of pocket. Will discuss with OR the availability of Stimulan beads. We did discuss the possibility that washout may fail and she may still lose her reconstruction. ID consult pending for further antibiotic recommendations. Admission and Anticipated Discharge Date Admission Date: October 06, 2020 Subjective Patient seen at bedside today. Had u/s guided aspiration of seroma yesterday. Feeling well. Pain is improved. Remains afebrile. Physical Exam Physical Exam: right breast with erythema, improved but still present especially lateral breast WBC 5 fluid culture shows staph, sensitivities pending Results & Data ([facility]) Vital Signs (Past 12 Hours) Vital Signs Temp Pulse Resp BP Pulse Ox 10/08/20 07:23 98.4 F 75 16 110/70 97 10/07/20 23:01 99.0 F 66 16 104/63 97 PG Care Time/CCT Total # of Minutes Spent Total Time Spent with Patient: Total time spent is greater than 50% in coordination of care (as documented) at patient's floor/unit and/or counseling patient: Coding Level of Care Code None Diagnoses Breast infection N61.0
--- NOTE | 2020-10-08 14:23 | Hospitalist Progress Note ---
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)-5 weeks ago Surgical site infection Has redness, increasing local warmth and tenderness over right breast mostly on top, inferior and right lateral area Surgical incision incision sites are nicely healed Did not have any sepsis at presentation Recent dental procedure Has been on intravenous daptomycin and Zosyn Await cultures and sensitivity Appreciate surgery input and recommendation Clinically better Status post ultrasound-guided aspiration of seroma and that was sent for Gram stain and culture Gram stain of the aspirate is growing staph aureus, full sensitivities pending Appreciate ID input and recommendation She will have implant removal, washout with possible implant replacement tomorrow by Dr. Webster Will need to give antibiotic if possible oral depending on the sensitivity for a total of 14 days Hypokalemia secondary to poor p.o. intake Mood disorder, at baseline DVT prophylaxis. [facility] Full code Admission and Anticipated Discharge Date Admission Date: October 06, 2020 Subjective 10/06/2020 The patient was seen and examined in medical unit She is status post bilateral mastectomy for DCIS about 5 weeks ago with bilateral breast implant Was admitted yesterday with right breast cellulitis Has been feeling a little better since admission with decreasing redness and swelling Denies any fever and/or chills 10/07/2020 The patient was seen and examined in medical floor She is a status post aspiration of right breast seroma Her right breast is smaller compared with yesterday but the redness over it is persisting No fever and/or chills 10/08/2020 The patient was seen and examined in medical floor She has been stable without any symptoms The redness, swelling and pain in the right breast have improved a lot Review of Systems Review of Systems: All systems reviewed and are unremarkable except as noted below Integumentary: + erythema (Right breast and adjoining area) and + change in skin color (Right breast and adjoining area) Bilateral mastectomies with breast implant Physical Exam Physical Exam: Lying in bed comfortably Constitutional: well developed and well nourished; not ill appearing Eyes: PERRL, conjunctivae normal, anicteric sclerae ENMT: external ear and nose normal, oropharynx normal Neck: trachea midline, no thyromegaly Respiratory: + labored breathing; no respiratory distress Auscultation: lungs clear to auscultation bilaterally Cardiovascular: Rate/Rhythm: regular rate and regular rhythm Heart Sounds: no murmur Extremities: no edema Chest (Breasts): Breast: + skin thickening (Right lateral breast area has thickened skin) and + breast tenderness (Right breast tenderness with adjoining redness and increasing warmth); + abnormal inspection of breast (Bilateral breast implant, surgical incision sites are nicely healed) Additional Comments: Erythema over the right breast has improved a lot without significant tenderness Gastrointestinal (Abdomen): Inspection/Auscultation: normal bowel sounds; abdomen not distended Percussion/Palpation: abdomen soft; abdomen nontender Psychiatric: A+Ox3, euthymic affect Lymphatic: no cervical or axillary lymphadenopathy Results & Data Results & Data ([facility]) Vital Signs (Past 12 Hours) Vital Signs Temp Pulse Resp BP Pulse Ox 10/08/20 10:52 36.4 C L 61 19 125/85 98 10/08/20 07:23 36.9 C 75 16 110/70 97 Laboratory Results Short CBC 10/08/20 Range/Units 07:40 WBC 5.01 (4.8-10.8) K/uL Hgb 11.4 L (12.0-16.0) g/dL Hct 33.9 L (37-47) % Plt Count 315 (130-400) K/uL BMP 10/08/20 07:40 Sodium 141 Potassium 4.0 Chloride 110 H Carbon Dioxide 24 BUN 9 Creatinine 0.57 L Glucose 91 Calcium 9.0 Medications Administered Current Inpatient Medications Acetaminophen (Acetaminophen 325 Mg Tab) 650 mg PO Q4H PRN PRN Reason: pain/fever Stop: 11/05/20 03:35 Last Admin: 10/07/20 12:29 Dose: 650 mg Documented by: Clonazepam (Clonazepam 0.5 Mg Tab) 0.5 mg PO DAILY PRN PRN Reason: restless legs Stop: 11/05/20 03:35 Last Admin: 10/07/20 21:45 Dose: 0.5 mg Documented by: Escitalopram Oxalate (Escitalopram Oxalate 10 Mg Tab) 10 mg PO QAM [facility] Stop: 11/05/20 08:59 Last Admin: 10/08/20 09:13 Dose: 10 mg Documented by: Lorazepam (Ativan) 0.25 mg in 0.5 mls @ 0.5 mls/min IV Q4H PRN PRN Reason: Anxiety Stop: 11/05/20 03:35 Promethazine HCl 12.5 mg/ (Sodium Chloride) 50.5 mls @ 202 mls/hr IV Q6H PRN PRN Reason: Nausea And Vomiting Stop: 11/05/20 03:35 Piperacillin Sod/Tazobactam (Sod 3.375 gm/ Dextrose) 115 mls @ 28.75 mls/hr IV Q8H [facility]; Protocol Stop: 10/13/20 05:59 Last Admin: 10/08/20 14:06 Dose: 28.8 mls/hr Documented by: Daptomycin 225 mg/ Syringe 4.5 mls @ 2.25 mls/min IV Q24H [facility]; Protocol Stop: 10/13/20 05:59 Last Admin: 10/08/20 05:37 Dose: 2.25 mls/min Documented by: Ibuprofen (Ibuprofen 200 Mg Tab) 200 mg PO Q6H PRN PRN Reason: Mild Pain Stop: 11/05/20 03:35 Last Admin: 10/07/20 21:45 Dose: 200 mg Documented by: Ketorolac Tromethamine (Ketorolac Tromethamine 15 Mg/Ml Vial) 15 mg IV Q4H PRN PRN Reason: Pain Stop: 10/11/20 03:35 Last Admin: 10/06/20 20:08 Dose: 15 mg Documented by: Lactobacillus Acidoph/Casei/Rhamnos (Advanced Probiotic 1250 Mg Capsule) 2 cap PO QAM [facility] Stop: 11/05/20 08:59 Last Admin: 10/08/20 09:13 Dose: 2 cap Documented by: Miscellaneous Information (Piperacill/Tazobac Consult Active) 1 ea N/A UD PRN PRN Reason: Consult Stop: 11/05/20 00:11 Miscellaneous Information (Daptomycin Consult Active) 1 ea N/A UD PRN PRN Reason: Consult Stop: 11/05/20 08:59 Multivitamins (Multivitamin Tab) 1 tab PO DAILY [facility] Stop: 11/05/20 08:59 Last Admin: 10/08/20 09:12 Dose: 1 tab Documented by: Oxycodone HCl (Oxycodone Hcl Ir 5 Mg Tab (Immediate Release)) 5 mg PO Q4H PRN PRN Reason: Pain Stop: 10/20/20 03:35
--- NOTE | 2020-10-08 20:07 | Surgery Progress Note ---
Date of Service October 08, 2020 Assessment & Plan (1) Cellulitis of right breast: Case reviewed with ID given patient's desire to maintain device. Recommended 4-6 weeks abx and adding rifampin. This was discussed with Jonny. Based on current fluid cultures showing moderate growth despite 48 hours of IV abx, I think it is unlikely we will be able to retain device in the halfway, and would ultimately end up removing it in 2-3 months which would cause a further delay in completing reconstruction. She agrees. She was consented for both exchange and removal, but understands (and prefers) that I will not attempt to replace if not clinically appropriate. We discussed bead placement, and that use of this in the breast is off label but is used in this capacity. If suggestion clerk is removed, we would not make another attempt at reconstruction for about 3-4 months. Questions were answered and consent obtained. Patient NPO for OR tomorrow. Admission and Anticipated Discharge Date Admission Date: October 06, 2020 Subjective Patient seen again today in followup. Feeling well. Had telehealth visit with ID today. Source of infection is suspected to be dental cleaning. ID has recommended removal of device with placement of antibiotic beads and 2 weeks oral antibiotics. Patient has expressed interest in maintaining an suggestion clerk if possible. Physical Exam Physical Exam: cx growing moderate staph Results & Data ([facility]) Vital Signs (Past 12 Hours) Vital Signs Temp Pulse Resp BP Pulse Ox 10/08/20 16:01 98.8 F 71 16 106/71 96 10/08/20 10:52 97.5 F L 61 19 125/85 98 PG Care Time/CCT Total # of Minutes Spent Total Time Spent with Patient: Total time spent is greater than 50% in coordination of care (as documented) at patient's floor/unit and/or counseling patient: Coding Level of Care Code None Diagnoses Cellulitis of right breast N61.0
[2020-10-09] MEDS: DAPTOmycin 225 MG in SYRINGE 0 ML IV SCH (05:25)
[2020-10-09] MEDS: ACETAMINOPHEN 325 MG TAB PO PRN (05:29)
[2020-10-09] MEDS ORDERED: FAMOTIDINE/PF 20 MG/2 ML VIAL IV ONE (06:59)
[2020-10-09] MEDS ORDERED: ACETAMINOPHEN 1000 MG/100 ML IV IV ONE (06:59)
[2020-10-09] MEDS: ADVANCED PROBIOTIC 1250 MG CAPSULE PO SCH (08:43)
[2020-10-09] MEDS: ESCITALOPRAM OXALATE 10 MG TAB PO SCH (08:43)
[2020-10-09] MEDS: MULTIVITAMIN TAB PO SCH (08:44)
[2020-10-09] MEDS ORDERED: NAFCILLIN SODIUM 2,000 MG in DEXTROSE 5% 100 ML IV SCH (12:00)
[2020-10-09] MEDS: NAFCILLIN SODIUM 2,000 MG in DEXTROSE 5% 100 ML IV SCH ×3 (12:52→20:56)
[2020-10-09] MEDS ORDERED: MIDAZOLAM HCL 1 MG/ML 2ML VIAL ONE (13:02)
[2020-10-09] MEDS ORDERED: fentaNYL citrate 100 MCG/2 ML VIAL ONE (13:03)
--- NOTE | 2020-10-09 13:18 | History & Physical Bridge Note ---
Date of Service October 09, 2020 History & Physical Bridge Note I have examined the patient, reviewed the History & Physical and in the interval since the performance of the History & Physical I have noted the following changes of clinical significance: no changes noted. Right breast remains warm and erythematous. Today she expresses preference to maintain device if possible; discussed that since breast is still quite red I suspect this will be unlikely but if clinical conditions seem appropriate I will attempt to replace.
[2020-10-09] MEDS ORDERED: LIDOCAINE/EPINEPHRINE 1% 20 ML VIAL ONE (13:24)
[2020-10-09] MEDS ORDERED: GENTAMICIN SULFATE 40 MG/ML 2 ML VIAL ONE (13:24)
[2020-10-09] MEDS ORDERED: BUPIVACAINE 0.25% 30 ML VIAL ONE (13:24)
[2020-10-09] MEDS ORDERED: ONDANSETRON INJ 2 MG/ML 2 ML VIAL ONE ×2 (13:37→14:21)
[2020-10-09] MEDS ORDERED: PROPOFOL IV EMULSION 10 MG/ML 20 ML VIAL IV ONE (13:37)
[2020-10-09] MEDS ORDERED: LIDOCAINE 2% 2 ML VIAL/AMP(20MG/ML) INFIL ONE (13:37)
[2020-10-09] MEDS ORDERED: ROCURONIUM BROMIDE 10 MG/ML 5 ML VIAL IV ONE (13:38)
[2020-10-09] MEDS ORDERED: METOCLOPRAMIDE HCL INJ 5 MG/ML 2 ML VIAL ONE (13:38)
[2020-10-09] MEDS ORDERED: SCOPOLAMINE 1 MG TDSY TD ONE (13:45)
[2020-10-09] MEDS ORDERED: THROMBIN FOR SOLN 20000 UNIT KIT ONE (14:17)
[2020-10-09] MEDS ORDERED: diphenhydrAMINE 50 MG/ML VIAL ONE (14:21)
[2020-10-09] MEDS ORDERED: DEXAMETHASONE SOD INJ 4 MG/ML VIAL ONE (14:21)
--- NOTE | 2020-10-09 14:21 | Anesthesiology Consultation ---
Date of Service October 09, 2020 Assessment & Plan (1) Encounter for annual routine gynecological examination: Chart Review Chart Review: Acceptable Risk for Surgery and Patient NOT seen in Pre Admission Testing Consults Requested none ASA ASA2 Proposed Anesthesia Anesthesia Type: General Risk / Benefits Reviewed With: PT / POA / Parent / Guardian, Accepts Plan and Informed Consent Obtained History Surgery Operation Date: 10/09/20 13:10 Proposed Procedures p Implant Removal, Washout, Possible Implant Replacement - Janee Oreilly MD Height/Weight Height: 5 ft 3 in Weight: 68.6 kg Allergies Allergy/AdvReac Type Severity Reaction Status Date / Time bee venom protein (honey bee) Allergy Intermediate Hives, Verified 10/06/20 02:03 chest tightness bacitracin Allergy Mild Rash Verified 10/06/20 02:03 [From Neosporin ([id number])] latex Allergy Mild Skin Verified 10/06/20 02:03 irritation neomycin Allergy Mild Rash Verified 10/06/20 02:03 [From Neosporin ([id number])] polymyxin B Allergy Mild Rash Verified 10/06/20 02:03 [From Neosporin ([id number])] Medications Home Medications Medication Instructions Recorded Confirmed Last Taken epinephrine [EpiPen] 0.3 mg IM Q3H PRN 02/23/18 10/06/20 Unknown escitalopram oxalate [Lexapro] 10 mg PO QAM 02/23/18 10/06/20 09/02/20 05:00 Probiotic 6,000 mmu cells PO QAM 06/27/20 10/06/20 09/01/20 08:00 acetaminophen [Tylenol Extra 1,000 mg PO TID PRN 10/06/20 10/06/20 Unknown Strength] apple cider vinegar 0 mg PO DAILY 10/06/20 10/06/20 Unknown cholecalciferol (vitamin D3) 125 mcg PO DAILY 10/06/20 10/06/20 Unknown [Vitamin D3] clonazepam 0.5 mg PO DAILY PRN 10/06/20 10/06/20 Unknown krill oil 500 mg PO DAILY 10/06/20 10/06/20 Unknown multivitamin 1 tab PO DAILY 10/06/20 10/06/20 Unknown oxycodone-acetaminophen 1 tab PO Q4 PRN 10/06/20 10/06/20 Unknown dicloxacillin 500 mg PO QID #20 cap 10/09/20 Unknown Active Medications Generic Name Dose Route Start Last Admin Trade Name Freq PRN Reason Stop Dose Admin Acetaminophen 650 mg 10/06/20 03:36 10/09/20 05:29 Acetaminophen 325 Mg Tab PO 11/05/20 03:35 650 mg Q4H PRN Administration pain/fever Clonazepam 0.5 mg 10/06/20 03:36 10/07/20 21:45 Clonazepam 0.5 Mg Tab PO 11/05/20 03:35 0.5 mg DAILY PRN Administration restless legs Escitalopram Oxalate 10 mg 10/06/20 09:00 10/09/20 08:43 Escitalopram Oxalate 10 Mg Tab PO 11/05/20 08:59 10 mg QAM OSKAR Administration Nafcillin Sodium 2,000 mg/ 110 mls @ 110 mls/hr 10/09/20 12:00 10/09/20 12:52 Dextrose IV 10/23/20 23:59 110 mls/hr Q4H OSKAR Administration Ibuprofen 200 mg 10/06/20 03:36 10/07/20 21:45 Ibuprofen 200 Mg Tab PO 11/05/20 03:35 200 mg Q6H PRN Administration Mild Pain Ketorolac Tromethamine 15 mg 10/06/20 03:36 10/06/20 20:08 Ketorolac Tromethamine 15 Mg/Ml Vial IV 10/11/20 03:35 15 mg Q4H PRN Administration Pain Lactobacillus Acidoph/Casei/Rhamnos 2 cap 10/06/20 09:00 10/09/20 08:43 Advanced Probiotic 1250 Mg Capsule PO 11/05/20 08:59 2 cap QAM OSKAR Administration Multivitamins 1 tab 10/06/20 09:00 10/09/20 08:44 Multivitamin Tab PO 11/05/20 08:59 1 tab DAILY OSKAR Administration NPO Date Last Intake of Fluids: 10/08/20 Time Last Intake of Fluids: 20:30 Last Intake of Fluids Comment: small sip with medication Date Last Intake of Solids: 10/08/20 Time Last Intake of Solids: 20:30 Past Medical History Medical History Cancer 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 Breast, left (breast reduction): - Ductal carcinoma in situ (DCIS), intermediate grade, is seen. Depression Esophageal stricture s/p dilation GERD (gastroesophageal reflux disease) History of eating disorder Leiomyoma Menorrhagia Pancolitis hx Restless leg syndrome Terminal ileitis hx Exercise / Class Metabolic Activity II 4-5 Yardwork/Stairs/Walk up hill Past Family History Family History Father Lung cancer Small cell lung, in six weeks Grandfather (Maternal) Diabetes Grandmother (Maternal) Lung cancer Uncle Prostate cancer Grandmother (Paternal) Breast cancer Other Crohn's disease Ovarian cancer Past Surgical History Surgical History H/O bilateral breast reduction surgery b/l breast reduction (07/10/20): Grade view 3, MAC#3, ETT 7.0 at [facility] H/O tubal ligation History of appendectomy History of breast biopsy Left (lipoma) History of cataract surgery R/L History of colonoscopy History of esophagogastroduodenoscopy (EGD) History of tooth extraction S/P section x1 S/P ear surgery Left ear exploratory surgery S/P laparoscopic cholecystectomy S/P mastectomy, bilateral (09/02/20) Bilateral Breast Mastectomy with [place] Lymph Node Biopsy Injection Only(Bilateral) - Yves Robertson MD, FACS s Bilateral Breast Immediate Reconstruction with Tissue Expanders and Acellular Matrix(Bilateral) - Janee Oreilly MD Slow to wake up after anesthesia "Slow to wake" after cholecystectomy (per pt, was told still slow to wake with "child sized dose" of anesthesia), no anesthesia complications noted per more recent b/l breast reduction done at [facility] 07/2020 Past Anesthesia History No Hx of Anesthesia Complications and No Family Hx of Anesthesia Complications History of PONV No Hx of PONV and No Hx of Motion Sickness Social History Smoking Status: Never smoker Hx Alcohol Use: No Hx Substance Use: No substance use type: does not use Physical Exam Vital Signs Last Vital Signs Temp 36.7 C 10/09/20 12:47 Pulse 74 10/09/20 12:47 Resp 18 10/09/20 12:47 BP 123/83 10/09/20 12:47 Pulse Ox 94 10/09/20 12:47 ENMT Mouth: no dentition abnormality Thyromental Distance: > or= 3.5 Finger Breadths Mallampati Class: II Neck normal visual inspection Respiratory normal respiratory effort Auscultation: lungs clear to auscultation bilaterally Cardiovascular Rate/Rhythm: regular rate and regular rhythm Psychiatric Orientation: alert Lab Results Anesthesia Preop Results Results Anesthesia Widget: WBC 5.01 K/uL (4.8-10.8) 10/08/20 Hgb 11.4 g/dL (12.0-16.0) L 10/08/20 Hct 33.9 % (37-47) L 10/08/20 Plt 315 K/uL (130-400) 10/08/20 Na 141 mmol/L (136-145) 10/08/20 K 4.0 mmol/L (3.5-5.1) 10/08/20 Cl 110 mmol/L (98-107) H 10/08/20 CO2 24 mmol/L (21-32) 10/08/20 BUN 9 mg/dl (7-18) 10/08/20 Creat 0.57 mg/dl (0.6-1.2) L 10/08/20 Glucose Level 91 mg/dl (70-99) 10/08/20 PT 9.8 Seconds (9.0-12.0) 08/27/20 PTT 27.1 Seconds (21.0-31.0) 08/27/20 INR 1.0 (0.9-1.1) 08/27/20 Urine Color Yellow 10/06/20 Urine Appearance Clear (Clear) 10/06/20 Urine pH 5.0 (4.5-7.5) 10/06/20 Urine Specific [place] 1.018 (1.000-1.030) 10/06/20 Urine Protein Negative (Negative) 10/06/20 Urine Glucose (UA) Negative (Negative) 10/06/20 Urine Ketones Negative (Negative) 10/06/20 Urine Blood Negative (Negative) 10/06/20 Urine Nitrite Negative (Negative) 10/06/20 Urine Bilirubin Negative (Negative) 10/06/20 Urine Urobilinogen Negative (Negative) 10/06/20 Urine Leukocyte Esterase Negative (Negative) 10/06/20 COVID-19 PCR NEGATIVE (Negative) 10/06/20 SARS-CoV-2, RNA, NAAT NEGATIVE (NEGATIVE) 09/02/20 Testing Laboratory Results 10/08/20 07:40 10/08/20 07:40 Urine Color Yellow 10/06/20 08:22 Urine Appearance Clear (Clear) 10/06/20 08:22 Urine pH 5.0 (4.5-7.5) 10/06/20 08:22 Ur Specific [place] 1.018 (1.000-1.030) 10/06/20 08:22 Urine Protein Negative (Negative) 10/06/20 08:22 Urine Glucose (UA) Negative (Negative) 10/06/20 08:22 Urine Ketones Negative (Negative) 10/06/20 08:22 Urine Nitrite Negative (Negative) 10/06/20 08:22 Ur Leukocyte Esterase Negative (Negative) 10/06/20 08:22 10/07/20 13:00 Gram Stain - Final Breast,Right Aerobic and Anaerobic Culture - Preliminary Staphylococcus aureus 10/06/20 00:47 Aerobic Blood Culture - Preliminary Blood No growth in Aerobic bottle after 48 hours. Anaerobic Blood Culture - Preliminary No growth in Anaerobic bottle after 48 hours. 10/05/20 23:25 Aerobic Blood Culture - Preliminary Blood No growth in Aerobic bottle after 48 hours. Anaerobic Blood Culture - Preliminary No growth in Anaerobic bottle after 48 hours.
--- NOTE | 2020-10-09 14:31 | Hospitalist Progress Note ---
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)-5 weeks ago Surgical site infection Has redness, increasing local warmth and tenderness over right breast mostly on top, inferior and right lateral area Surgical incision incision sites are nicely healed Did not have any sepsis at presentation Recent dental procedure Has been on intravenous daptomycin and Zosyn Await cultures and sensitivity Appreciate surgery input and recommendation Clinically better Status post ultrasound-guided aspiration of seroma and that was sent for Gram stain and culture Gram stain of the aspirate is growing staph aureus, full sensitivities pending Appreciate ID input and recommendation She will have implant removal, washout with possible implant replacement today by Dr. Webster Her antibiotic is changed to intravenous nafcillin while in the hospital Discussed with the pharmacist and will change to oral dicloxacillin on discharge to continue for a total of 14 days Hypokalemia secondary to poor p.o. intake Mood disorder, at baseline [facility] Full [facility] Admission and Anticipated Discharge Date Admission Date: October 06, 2020 Subjective 10/06/2020 The patient was seen and examined in medical unit She is status post bilateral mastectomy for DCIS about 5 weeks ago with bilateral breast implant Was admitted yesterday with right breast cellulitis Has been feeling a little better since admission with decreasing redness and swelling Denies any fever and/or chills 10/07/2020 The patient was seen and examined in medical floor She is a status post aspiration of right breast seroma Her right breast is smaller compared with yesterday but the redness over it is persisting No fever and/or chills 10/08/2020 The patient was seen and examined in medical floor She has been stable without any symptoms The redness, swelling and pain in the right breast have improved a lot 10/09/2020 Patient was seen and examined in medical floor She is very anxious otherwise denies any other symptoms She will be going for proposed surgery this afternoon by Dr. Webster Review of Systems Review of Systems: All systems reviewed and are unremarkable except as noted below Integumentary: + erythema (Right breast and adjoining area) and + change in skin color (Right breast and adjoining area) Bilateral mastectomies with breast implant Physical Exam Physical Exam: Lying in bed comfortably Constitutional: well developed and well nourished; not ill appearing Eyes: PERRL, conjunctivae normal, anicteric sclerae ENMT: external ear and nose normal, oropharynx normal Neck: trachea midline, no thyromegaly Respiratory: + labored breathing; no respiratory distress Auscultation: lungs clear to auscultation bilaterally Cardiovascular: Rate/Rhythm: regular rate and regular rhythm Heart Sounds: no murmur Extremities: no edema Chest (Breasts): Breast: + skin thickening (Right lateral breast area has thickened skin) and + breast tenderness (Right breast tenderness with adjoining redness and increasing warmth); + abnormal inspection of breast (Bilateral breast implant, surgical incision sites are nicely healed) Gastrointestinal (Abdomen): Inspection/Auscultation: normal bowel sounds; abdomen not distended Percussion/Palpation: abdomen soft; abdomen nontender Musculoskeletal: No acute arthritis in any joint Skin: Skin over right breast prosthesis shows improvement with almost normal in color and no tenderness with minimal increase in local temperature Psychiatric: A+Ox3, euthymic affect Lymphatic: no cervical or axillary lymphadenopathy Results & Data Results & Data ([facility]) Vital Signs (Past 12 Hours) Vital Signs Temp Pulse Resp BP BP Pulse Ox 10/09/20 12:47 36.7 C 74 18 123/83 94 10/09/20 07:26 36.6 C 68 16 116/75 97 Medications Administered Current Inpatient Medications Acetaminophen (Acetaminophen 325 Mg Tab) 650 mg PO Q4H PRN PRN Reason: pain/fever Stop: 11/05/20 03:35 Last Admin: 10/09/20 05:29 Dose: 650 mg Documented by: Clonazepam (Clonazepam 0.5 Mg Tab) 0.5 mg PO DAILY PRN PRN Reason: restless legs Stop: 11/05/20 03:35 Last Admin: 10/07/20 21:45 Dose: 0.5 mg Documented by: Escitalopram Oxalate (Escitalopram Oxalate 10 Mg Tab) [facility] [place] Stop: 11/05/20 08:59 Last Admin: 10/09/20 08:43 Dose: 10 mg Documented by: Lorazepam (Ativan) 0.25 mg in 0.5 mls @ 0.5 mls/min IV Q4H PRN PRN Reason: Anxiety Stop: 11/05/20 03:35 Promethazine HCl 12.5 mg/ (Sodium Chloride) 50.5 mls @ 202 mls/hr IV Q6H PRN PRN Reason: Nausea And Vomiting Stop: 11/05/20 03:35 Nafcillin Sodium 2,000 mg/ (Dextrose) 110 mls @ 110 mls/hr IV Q4H [facility] Stop: 10/23/20 23:59 Last Admin: 10/09/20 12:52 Dose: 110 mls/hr Documented by: Ibuprofen (Ibuprofen 200 Mg Tab) 200 mg PO Q6H PRN PRN Reason: Mild Pain Stop: 11/05/20 03:35 Last Admin: 10/07/20 21:45 Dose: 200 mg Documented by: Ketorolac Tromethamine (Ketorolac Tromethamine 15 Mg/Ml Vial) 15 mg IV Q4H PRN PRN Reason: Pain Stop: 10/11/20 03:35 Last Admin: 10/06/20 20:08 Dose: 15 mg Documented by: Lactobacillus Acidoph/Casei/Rhamnos (Advanced Probiotic 1250 Mg Capsule) 2 cap PO QAM [facility] Stop: 11/05/20 08:59 Last Admin: 10/09/20 08:43 Dose: 2 cap Documented by: Multivitamins (Multivitamin Tab) 1 tab PO DAILY [facility] Stop: 11/05/20 08:59 Last Admin: 10/09/20 08:44 Dose: 1 tab Documented by: Oxycodone HCl (Oxycodone Hcl Ir 5 Mg Tab (Immediate Release)) 5 mg PO Q4H PRN PRN Reason: Pain Stop: 10/20/20 03:35
[2020-10-09] MEDS ORDERED: VANCOMYCIN HCL 1000MG/20ML VIAL ONE (14:32)
[2020-10-09] MEDS ORDERED: ePHEDrine sulfate 50 MG/ML AMP ONE (14:38)
[2020-10-09] MEDS ORDERED: SODIUM CHLORIDE 0.9% INJ 10 ML VIAL ONE (14:38)
[2020-10-09] MEDS ORDERED: ATROPINE SULFATE 0.1 MG/ML 10ML SYR IV PRN (14:40)
[2020-10-09] MEDS ORDERED: fentaNYL citrate 100 MCG/2 ML VIAL IV PRN (14:40)
[2020-10-09] MEDS ORDERED: ePHEDrine sulfate 50 MG/ML AMP IV PRN (14:40)
[2020-10-09] MEDS ORDERED: ONDANSETRON INJ 2 MG/ML 2 ML VIAL IV PRN (14:40)
[2020-10-09] MEDS ORDERED: GLYCOPYRROLATE 0.2 MG/ML VIAL ONE (15:08)
[2020-10-09] MEDS ORDERED: NEOSTIGMINE METHYLSULFATE 1 MG/ML 10ML VIAL ONE (15:09)
--- NOTE | 2020-10-09 15:27 | Post Operative Brief Note ---
PG Immediate Post Op with CF Date of Surgery October 09, 2020 Pre & Post Diagnosis Operation Date: 10/09/20 13:10 Pre-Op Diagnosis: Right Breast Cellulitis Post-Op Diagnosis: Right Breast Cellulitis I identified the patient and participated in the time-out.: Yes Procedure Operation Date: 10/09/20 13:10 Actual Procedures p Washout/Debridement of Right Breast Pocket, Removal of Right Breast Tissue Photo Checker(Right) - Janee Oreilly MD Surgeon Janee Oreilly MD Electrical And Instrument Mechanic Sandi Hannah PA-C Estimated Blood Loss 5 Findings See Below 150 cc murky fluid right breast, granulomatous and inflamed pocket, partial incorporation of alloderm Specimens Specimen Description: Culture #1: Deep Wound Culture Right Breast Pocket Fresh Specimen: A.) Infected Right Breast Tissue and Photo Checker Drains Evin-Le Drain (x1) Anesthesia Type General Complications none Disposition Disposition: Recovery Room
--- NOTE | 2020-10-09 15:36 | Operative Report ---
PG Post Operative Report Pre & Post Diagnosis Operation Date: 10/09/20 13:10 Pre-Op Diagnosis: Right Breast Cellulitis Post-Op Diagnosis: Right Breast Cellulitis I identified the patient and participated in the time-out.: Yes Procedure Operation Date: 10/09/20 13:10 Actual Procedures p Washout/Debridement of Right Breast Pocket, Removal of Right Breast Tissue Telephone Information Supervisor(Right) - Janee Oreilly MD Surgeon Janee Oreilly MD Engraver Machine Sandi Hannah PA-C Estimated Blood Loss 5 Findings See Below Specimens deep wound culture, alloderm, tissue human resources mgr Drains JPx1 Anesthesia Type General Complications none Disposition Disposition: Recovery Room Indications 5 1/2 weeks s/p bilateral mastectomy, presented to the emergency department at 5 weeks postoperative with acute onset redness of right breast, with minimal improvement after 72 hours of intravenous antibiotics. Description of Procedure The risks, benefits, alternatives the procedure explained the patient agreed and signed consent. We discussed preoperatively option of possible tissue human resources mgr salvage versus removal and replacement in about 3 months. She preferred salvage if possible, but understood the likely probability of device removal. She is placed under general anesthesia, surgical site was prepped and draped sterilely. Timeout procedure was performed. 1% lidocaine with epinephrine was used anesthetize the planned incision. I utilized the lateral aspect of the mastectomy incision along the inframammary fold. Incision was carried down sharply through subcutaneous tissue until AlloDerm was identified. Opening of the incision resulted in return of murky fluid. AlloDerm was incised and additional murky fluid was noted in the pocket surrounding the human resources mgr, which was cultured. Fluid was suctioned out using a Yankauer and there was about 150 cc of murky fluid. Telephone Information Supervisor was freely mobile in the pocket and was removed. It was noted to be intact. Examination of the pocket showed cobblestone appearing granulation tissue of the posterior capsule and anteriorly, about 30% of the AlloDerm was noted to be unincorporated. AlloDerm was then removed using accommodation of blunt dissection and electrocautery. Based on intraoperative findings, I felt there would not be any value in attempting to replace the human resources mgr, given the murky fluid and significant cobblestoned appearance. There was noted to be some generalized oozing of the pocket, without any noteworthy bleeding vessels. Wound was copiously irrigated using Betadine, gentamicin, Ancef mix, followed by Vashe wound wash. Thrombin spray was applied to the wound bed. Wound was noted to be hemostatic prior to closure. 15 Irish TONY drain was placed through separate stab incision, sutured in place using 3-0 nylon. 2-0 Vicryl deep dermal suture was used to reapproximate the wound, 3-0 Monocryl running subcuticular suture was used to reapproximate the skin. A Prevena VAC was then placed over the incision. Drain site was dressed using Acticoat and Tegaderm. EBL was 5 cc. Procedure was tolerated well. Patient was awakened and transferred to come in satisfactory condition. Sandi Hannah PA-C was present and scrubbed throughout the procedure, assisted in retraction and hemostasis. I attest to the content of the Intraoperative Record and any orders documented therein. Any exceptions are noted below.
--- NOTE | 2020-10-09 16:29 | Anesthesiology Progress Note ---
Date of Service October 09, 2020 Anesthesia Post Procedure Vital Signs Vital Signs: Temp Pulse Pulse Resp BP BP Pulse Ox 10/09/20 16:20 36.7 C 59 L 15 107/69 95 10/09/20 16:10 58 L 17 104/65 95 10/09/20 16:00 59 L 16 103/70 100 10/09/20 15:50 65 14 112/69 100 10/09/20 15:43 36.0 C L 81 16 114/70 100 10/09/20 12:47 36.7 C 74 18 123/83 94 10/09/20 07:26 36.6 C 68 16 116/75 97 10/08/20 22:30 36.6 C 70 16 105/69 97 Pain Intensity Breast: Pain Intensity: 0 Head: Pain Intensity: 4 Transfer of Care Handoff Completed per policy Notes Mental Status: alert / awake / arousable and participated in evaluation Patient Amnestic to Procedure: Yes Nausea / Vomiting: adequately controlled Pain: adequately controlled Airway Patency, RR, SpO2: stable & adequate BP & HR: stable & adequate Hydration State: stable & adequate Anesthetic Complications: no major complications apparent and Pt Satisfied with anesthetic care
--- NOTE | 2020-10-09 16:55 | Anesthesiology Progress Note ---
Date of Service October 09, 2020 Anesthesia Post Procedure Vital Signs Vital Signs: Temp Pulse Pulse Resp BP BP Pulse Ox 10/09/20 16:30 36.7 C 57 L 14 107/69 95 10/09/20 16:20 36.7 C 59 L 15 107/69 95 10/09/20 16:10 58 L 17 104/65 95 10/09/20 16:00 59 L 16 103/70 100 10/09/20 15:50 65 14 112/69 100 10/09/20 15:43 36.0 C L 81 16 114/70 100 10/09/20 12:47 36.7 C 74 18 123/83 94 10/09/20 07:26 36.6 C 68 16 116/75 97 10/08/20 22:30 36.6 C 70 16 105/69 97 Pain Intensity Breast: Pain Intensity: 0 Head: Pain Intensity: 4 Transfer of Care Handoff Completed per policy Notes Mental Status: alert / awake / arousable and participated in evaluation Patient Amnestic to Procedure: Yes Nausea / Vomiting: adequately controlled Pain: adequately controlled Airway Patency, RR, SpO2: stable & adequate BP & HR: stable & adequate Hydration State: stable & adequate Anesthetic Complications: no major complications apparent and Pt Satisfied with anesthetic care
[2020-10-09] MEDS ORDERED: EPINEPHrine INJ 1 MG/ML AMP IM PRN (17:22)
[2020-10-09] MEDS: ACETAMINOPHEN 500 MG TAB PO PRN (19:46)
--- NOTE | 2020-10-09 21:11 | Surgery Progress Note ---
Date of Service October 09, 2020 Assessment & Plan (1) Breast infection: Spoke with patient via telephone at 9 pm. She is feeling well, other than a sore and swollen throat. Anesthesia noted difficult intubation as compared to prior two surgeries as a result of enlarged tonsils. Denies breast pain. Reports 18 cc of serosanguinous drainage. Intraoperative findings as well as removal of rotary drill operator were discussed and questions were addressed. Magic Mouthwash ordered. Will reassess in am, possible discharge if doing well. Admission and Anticipated Discharge Date Admission Date: October 06, 2020 Results & Data ([facility]) Vital Signs (Past 12 Hours) Vital Signs Temp Pulse Pulse Resp BP Pulse Ox 10/09/20 18:42 99.0 F 80 16 99/64 L 93 10/09/20 17:46 98.6 F 76 16 100/65 93 10/09/20 17:33 98.8 F 77 16 97/64 L 91 10/09/20 16:30 98.1 F 57 L 14 107/69 95 10/09/20 16:20 98.1 F 59 L 15 107/69 95 10/09/20 16:10 58 L 17 104/65 95 10/09/20 16:00 59 L 16 103/70 100 10/09/20 15:50 65 14 112/69 100 10/09/20 15:43 96.8 F L 81 16 114/70 100 10/09/20 12:47 98.1 F 74 18 123/83 94 PG Care Time/CCT Total # of Minutes Spent Total Time Spent with Patient: Total time spent is greater than 50% in coordination of care (as documented) at patient's floor/unit and/or counseling patient: Coding Level of Care Code None Diagnoses Breast infection N61.0
[2020-10-09] MEDS ORDERED: Nursing to Pharmacy Communication SCH (23:15)
[2020-10-10] MEDS: ACETAMINOPHEN 500 MG TAB PO PRN ×2 (02:32→11:30)
[2020-10-10] MEDS: NAFCILLIN SODIUM 2,000 MG in DEXTROSE 5% 100 ML IV SCH ×3 (02:33→09:48)
--- NOTE | 2020-10-10 08:20 | Surgery Progress Note ---
Date of Service October 10, 2020 Assessment & Plan (1) Cellulitis of right breast: (2) Encounter for breast reconstruction following mastectomy: Admission and Anticipated Discharge Date Admission Date: Patient is doing well s/p removal of infected right breast tis dilcia shaker tender. Her drain and wound vac are functioning. She is stable for d/c home per Plastic Surgery. Antibiotics and discharge order per medicine. She will follow-up in office tomorrow if d/c home today. Post-op activity restrictions were reviewed with the patient. Supervising Physician Co-Signing Physician Notes I personally saw and examined this patient and agree with the assessment and plan. Subjective Patient resting comfortably. She reports minimal pain. VSS, drain output as expected. ABX was switched to intravenous nafcillin while in the hospital, change to oral dicloxacillin on discharge to continue for a total of 14 days Physical Exam Physical Exam: drain with scant serosang output. prevena wound vac holding excellent suction. improved erythema of soft tissue Results & Data ([facility]) Vital Signs (Past 12 Hours) Vital Signs Temp Pulse Resp BP Pulse Ox 10/10/20 07:44 36.5 C 66 16 94/57 L 97 10/10/20 02:39 37 C 70 14 91/58 L 95 PG Care Time/CCT Total # of Minutes Spent Total Time Spent with Patient: Total time spent is greater than 50% in coordination of care (as documented) at patient's floor/unit and/or counseling patient: Coding Level of Care Code None Diagnoses Cellulitis of right breast N61.0 Encounter for breast reconstruction following mastectomy Z42.1
[2020-10-10] MEDS: MULTIVITAMIN TAB PO SCH (09:49)
[2020-10-10] MEDS: ADVANCED PROBIOTIC 1250 MG CAPSULE PO SCH (09:49)
[2020-10-10] MEDS: ESCITALOPRAM OXALATE 10 MG TAB PO SCH (09:49)
--- NOTE | 2020-10-10 11:07 | Hospitalist Progress Note ---
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)-5 weeks ago Surgical site infection Has redness, increasing local warmth and tenderness over right breast mostly on top, inferior and right lateral area Surgical incision incision sites are nicely healed Did not have any sepsis at presentation Recent dental procedure Has been on intravenous daptomycin and Zosyn Await cultures and sensitivity Appreciate surgery input and recommendation Clinically better Status post ultrasound-guided aspiration of seroma and that was sent for Gram stain and culture Gram stain of the aspirate is growing staph aureus-sensitivity noted Appreciate ID input and recommendation Her antibiotic is changed to intravenous nafcillin while in the hospital Discussed with the pharmacist and will change to oral dicloxacillin on discharge to continue for a total of 14 days Status post washout/debridement of the right breast pocket and removal of right breast tissue drop man on 10/09/2020 Denies any acute symptoms and no fever and no chills She will be discharged home this afternoon and will have follow-up with her plastic surgeon Hypokalemia secondary to poor p.o. intake Mood disorder, at baseline DVT prophylaxis. Lovenox subcu Full code Admission and Anticipated Discharge Date Admission Date: October 06, 2020 Subjective 10/06/2020 The patient was seen and examined in medical unit She is status post bilateral mastectomy for DCIS about 5 weeks ago with bilateral breast implant Was admitted yesterday with right breast cellulitis Has been feeling a little better since admission with decreasing redness and swelling Denies any fever and/or chills 10/07/2020 The patient was seen and examined in medical floor She is a status post aspiration of right breast seroma Her right breast is smaller compared with yesterday but the redness over it is persisting No fever and/or chills 10/08/2020 The patient was seen and examined in medical floor She has been stable without any symptoms The redness, swelling and pain in the right breast have improved a lot 10/09/2020 Patient was seen and examined in medical floor She is very anxious otherwise denies any other symptoms She will be going for proposed surgery this afternoon by Dr. Webster 10/10/2020 The patient was seen and examined in medical floor She is status post Washout/debridement of the right breast pocket wall of right breast tissue drop man She has been feeling much better and she wants to go home this afternoon Review of Systems Review of Systems: All systems reviewed and are unremarkable except as noted below Integumentary: + change in skin color (Right breast and adjoining area); no erythema (Right breast and adjoining area) Bilateral mastectomies with breast implant Physical Exam Physical Exam: Lying in bed comfortably Constitutional: well developed and well nourished; not ill appearing Eyes: PERRL, conjunctivae normal, anicteric sclerae ENMT: external ear and nose normal, oropharynx normal Neck: trachea midline, no thyromegaly Respiratory: + labored breathing; no respiratory distress Auscultation: lungs clear to auscultation bilaterally Cardiovascular: Rate/Rhythm: regular rate and regular rhythm Heart Sounds: no murmur Extremities: no edema Chest (Breasts): Breast: + skin thickening (Right lateral breast area has thickened skin) and + breast tenderness (Right breast tenderness with adjoining redness and increasing warmth); + abnormal inspection of breast (Bilateral breast implant, surgical incision sites are nicely healed) Gastrointestinal (Abdomen): Inspection/Auscultation: normal bowel sounds; abdomen not distended Percussion/Palpation: abdomen soft; abdomen nontender Musculoskeletal: No acute arthritis in any joint Neurologic: Alert, awake and oriented x3. No focal sensory and motor deficit appreciated Psychiatric: A+Ox3, euthymic affect Lymphatic: no cervical or axillary lymphadenopathy Results & Data Results & Data ([facility]) Vital Signs (Past 12 Hours) Vital Signs Temp Pulse Resp BP Pulse Ox 10/10/20 07:44 36.5 C 66 16 94/57 L 97 10/10/20 02:39 37 C 70 14 91/58 L 95
--- NOTE | 2020-10-11 08:37 | Discharge Summary ---
Date of Service October 11, 2020 Admission HPI Per Admitting Provider History obtained from patient and records. 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 Incidental DCIS of left breast found after elective bilateral reduction mammoplasty last July 2020. Patient elected to have bilateral breast mastectomy followed by reconstruction last month. Uneventful postop course. Dental cleaning procedure about 10 days ago. 2 days ago, patient noted right breast pain followed by swelling with fever, fatigue, chills. No cough, no S OB. No abdominal pain, no diarrhea. Appetite not too good. Patient directed by her plastic surgeon to ER for evaluation. Patient received IV Vancomycin and Zosyn at the ER. 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 Exam Per Admitting Provider Physical Exam: GENERAL: Comfortable, pleasant, no respiratory distress SKIN: Normal color, warm HEENT: [place] palpebral conjunctivae, no ptosis, dry buccal mucosa NECK : Supple, no tenderness CHEST : CTA, tender induration right breast HEART : RRR, no obvious murmurs ABDOMEN: Some distention, nontender EXTREMITIES : No LE swelling/tenderness, no other conspicuous deformities noted NEUROLOGIC : Coherent, no facial asymmetry, no other gross focality Principal Diagnosis Cellulitis of right breast, status post washout/debridement of the right breast pocket and removal of right breast tissue panelboard tank pumper Discharge Exam Constitutional well developed and well nourished; not ill appearing Eyes PERRL, conjunctivae normal, anicteric sclerae ENMT external ear and nose normal, oropharynx normal Neck trachea midline, no thyromegaly Respiratory + labored breathing; no respiratory distress Auscultation: lungs clear to auscultation bilaterally Cardiovascular Rate/Rhythm: regular rate and regular rhythm Heart Sounds: no murmur Extremities: no edema Chest (Breasts) Breast: + skin thickening (Right lateral breast area has thickened skin) and + breast tenderness (Right breast tenderness with adjoining redness and increasing warmth); + abnormal inspection of breast (Bilateral breast implant, surgical incision sites are nicely healed) Gastrointestinal (Abdomen) Inspection/Auscultation: normal bowel sounds; abdomen not distended Percussion/Palpation: abdomen soft; abdomen nontender Psychiatric A+Ox3, euthymic affect Lymphatic no cervical or axillary lymphadenopathy Discharge Data Allergies Allergy/AdvReac Type Severity Reaction Status Date / Time bee venom protein (honey bee) Allergy Intermediate Hives, Verified 10/06/20 02:03 chest tightness bacitracin Allergy Mild Rash Verified 10/06/20 02:03 [From Neosporin ([id number])] latex Allergy Mild Skin Verified 10/06/20 02:03 irritation neomycin Allergy Mild Rash Verified 10/06/20 02:03 [From Neosporin ([id number])] polymyxin B Allergy Mild Rash Verified 10/06/20 02:03 [From Neosporin ([id number])] Consultations 10/06/20 00:13 Consult Plastic Surgery Stat 10/06/20 00:15 ED Decision to Admit Stat 10/07/20 14:52 Consult Infectious Diseases Routine Procedures Performed Operation Date: 10/09/20 13:10 Actual Procedures p Washout/Debridement of Right Breast Pocket, Removal of Right Breast Tissue Sweetbread Trimmer(Right) - Janee Oreilly MD Ordered Studies 10/07/20 10:12 US breast RT limited Routine 10/07/20 12:45 US punc asp abs/artie/bulla/cys Routine Hospital Course (1) Cellulitis of right breast: 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)-5 weeks ago Surgical site infection Has redness, increasing local warmth and tenderness over right breast mostly on top, inferior and right lateral area Surgical incision incision sites are nicely healed Did not have any sepsis at presentation Recent dental procedure Has been on intravenous daptomycin and Zosyn Await cultures and sensitivity Appreciate surgery input and recommendation Clinically better Status post ultrasound-guided aspiration of seroma and that was sent for Gram stain and culture Gram stain of the aspirate is growing staph aureus-sensitivity noted Appreciate ID input and recommendation Her antibiotic is changed to intravenous nafcillin while in the hospital Discussed with the pharmacist and will change to oral dicloxacillin on discharge to continue for a total of 14 days Status post washout/debridement of the right breast pocket and removal of right breast tissue panelboard tank pumper on 10/09/2020 Denies any acute symptoms and no fever and no chills She will be discharged home this afternoon and will have follow-up with her plastic surgeon Hypokalemia secondary to poor p.o. intake Mood disorder, at baseline DVT prophylaxis. Lovenox subcu Full code Total Time Total Time Spent Total Time Spent (In Minutes): 35 minutes Total Time Includes: Examination of the Patient, Discharge Planning, Medication Reconciliation and Communication With Other Providers Discharge Plan Discharge Items Patient Disposition: Home - Self-Care Reason For Visit: R BREAST CELLULITIS Discharge Diagnosis: Cellulitis of right breast, status post washout/debridement of the right breast pocket and removal of right breast tissue panelboard tank pumper Condition on Discharge: Good Activity: As commented below Activity Comment: As recommended by the plastic surgeon Non-emergency contact: Primary Care Provider Call non-emergency contact if: you have any medication questions and your symptoms worsen Follow-up/Referrals: Latisah Rose PA-C [Primary Care Provider] - (Date & Time 10/10/2020 2:00 PM Provider Jose Daniel Mills III, MD Department [facility] ) Diet: Regular Addtl Attending Provider Instructions: Please finish the course of antibiotics Follow the instructions about activity as is advised Please keep your appointments with the plastic surgeon and also the PCP She can take her Magic mouthwash bottle on discharge and use as directed Pending Studies at Discharge: No Stand-Alone Forms: [employer], Smoking Cessation Medications and DC Order Prescriptions: New dicloxacillin 500 mg capsule 500 mg PO QID Qty: 20 RF: 0 Continued Probiotic 3 billion cell Capsule 6,000 mmu cells PO QAM RF: 0 escitalopram oxalate [Lexapro] 10 mg Tablet 10 mg PO QAM RF: 0 epinephrine [EpiPen] 0.3 mg/0.3 mL Auto-Injector 0.3 mg IM Q3H PRN (Reason: Allergy Symptoms) RF: 0 acetaminophen [Tylenol Extra Strength] 500 mg Tablet 1,000 mg PO TID PRN (Reason: Pain) RF: 0 apple cider vinegar 300 mg Tablet 0 mg PO DAILY RF: 0 cholecalciferol (vitamin D3) [Vitamin D3] 125 mcg (5,000 unit) Tablet 125 mcg PO DAILY RF: 0 multivitamin Tablet 1 tab PO DAILY RF: 0 clonazepam 0.5 mg tablet 0.5 mg PO DAILY PRN (Reason: restless legs) RF: 0 oxycodone-acetaminophen 5-325 mg tablet 1 tab PO Q4 PRN (Reason: Pain) RF: 0 krill oil 500 mg Capsule 500 mg PO DAILY RF: 0 Discharge Orders: Discharge Order (Routine); Ordered 10/10/20 Ordered By: Edil Meyers Admission Data Admit Date/Time: 10/06/20 02:15 Attending Provider: Edil Meyers Admit Provider: Jeffery Gilbert Primary Care Provider: Latisha Rose Other Providers: Eric,Jay ; Janee Oreilly ; Jeffery Gilbert ; Justin Lanier ; Hunter Kenyon ; Stanley Tinajero I. ; Garett Teague II ; Antonietta Ruggiero ; Nino Voss Other Interventions: Discharge Summary Assessment (RN) Last Done: 10/10/20 12:08
--- NOTE | 2020-10-14 08:22 | Coding Query ---
CODING QUERY To promote full compliance with coding requirements relating to patient care, provider participation is requested in all cases of television installer helper uncertainty. Please assist us with the question(s) below: Coding Question(s): Cellulitis of right breast is documented through the record and on Discharge Summary as well as Seroma and there is documentation of infected tissue marine plumber as on the 10/10/20 Surgery Progress Note and the 10/09/20 Brief Operative Note. The Surgery Consultation on 10/06/20 documents, "Right breast is cellulitic. Suspect device infection. Given timing, unlikely to be SSI; most likely source is from bacteremia from dental cleaning, but also possible skin source from accessing the marine plumber for fill 3 weeks ago should be considered. Case was discussed with Dr. Hess, treatment protocol for tissue marine plumber infection typically is 24 to 48 hours of intravenous antibiotics, if erythema responds, could consider transition to p.o. antibiotics. 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 Please specify below, in your clinical opinion. ( ) Infection likely due to recent Dental procedure ( ) Infection likely due to Other Procedure. Please Specify ( ) Infection likely a Postoperative Complication from the Mastectomy/Reconstruction procedure ( ) Infection likely due to Other: Please Specify ( ) Infection is due to unknown but not due to any procedure. Not due to any postprocedural complications Clearly documented that this is SSI by the surgeon and myself. No further change. Physician's Response(s): Thank you Sherrill Still Principal Diagnosis: "that condition established after study, to be chiefly responsible for occasioning the admission of the patient to the hospital for care." Co-Existing Principal Diagnosis: "when two or more diagnoses equally meet the criteria for principal diagnosis as determined by the circumstances of admission, diagnostic work up, and/or therapy provided, and the Alphabetic Index, Tabular List, or another coding guideline does not provide sequencing direction, any one of the diagnoses may be sequenced first." "When the physician has documented what appears to be a current diagnosis in the body of the record, but has not included the diagnosis in the final diagnostic statement, the physician should be asked whether the diagnosis should be added." (Source Coding [facility] 2 QTR90. p3-4) BELKIS
== END 2020-10-10 12:24 | disposition home or self-care (01) | DRG 857 ==
LOC: ED 22:00 → SUATTDRO 10-06 02:15 → 3E 10-06 02:15